=== PATIENT | female | born 1960 | race Caucasian/White ===

== ENCOUNTER 2016-09-04 20:39 | Inpatient (IN) | payer MEDICARE, MEDICAID ==
[~2016-09-04] VITALS: Ht 167.6 cm; Wt 97.9 kg
[~2016-09-04 20:39] MED LIST: ASPI-496 PO; CLON2TAB16 PO; CYCL-259 PO; DULO30CA2 PO; GABA100C PO; LISI1TAB7 PO; TRAZ100T15 PO
[2016-09-04] MEDS ORDERED: ONDANSETRON 2MG/ML, 2ML ONE (21:16)
[2016-09-04] MEDS ORDERED: HYDROmorphone 1 MG/ML, 1ML ONE ×2 (21:16→22:09)
[2016-09-04] MEDS ORDERED: SODIUM CHLORIDE 0.9% 1,000ML IVBOLUS ONE (21:30)
[2016-09-04] MEDS ORDERED: ONDANSETRON 2MG/ML, 2ML IVPush ONE (21:30)
[2016-09-04] MEDS: HYDROmorphone 1 MG/ML, 1ML IVPush PRN ×2 (21:32→22:15)
[2016-09-04 21:38] LABS: HEMOGLOBIN 14.7 g/dL (11.7-16.4)
[2016-09-04 21:50] LABS: BLOOD UREA NITROGEN 13 mg/dL (7-18)
[2016-09-04 21:54] LABS: ASPARTATE AMINO TRANSFERASE 11 U/L (15-37)
[2016-09-04 22:00] LABS: DIFF TOTAL CELLS COUNTED 100 CELL DIFF
[2016-09-04 22:07] LABS: VERIFY COUNTS? YES
[2016-09-05] MEDS ORDERED: HYDROmorphone 1 MG/ML, 1ML ONE (00:22)
[2016-09-05] MEDS ORDERED: SODIUM CHLORIDE 0.9% 1,000 ML IV ONE (00:43)
[2016-09-05] MEDS ORDERED: AMPICILLIN/SULBACTAM 1,500 MG in SODIUM CHLORIDE 0.9% 50 ML IV STA (00:45)
[2016-09-05] MEDS ORDERED: HYDROmorphone 1 MG/ML, 1ML IVPush PRN (01:00)
[2016-09-05] MEDS ORDERED: ONDANSETRON 2MG/ML, 2ML IVPush PRN (01:00)
[2016-09-05] MEDS ORDERED: HYDROmorphone 1 MG/ML, 1ML IV ONE (01:00)
[2016-09-05] MEDS ORDERED: NICOTINE 7 MG/24 HR PATCH.TD24 TD SCH (01:30)
[2016-09-05] MEDS ORDERED: ONDANSETRON 2MG/ML, 2ML IVP PRN (01:30)
[2016-09-05] MEDS ORDERED: POLYETHYLENE GLYCOL 17 GM PACKET PO PRN (01:30)
[2016-09-05] MEDS ORDERED: AMPICILLIN/SULBACTAM 3 GM in SODIUM CHLORIDE 0.9% 100 ML IV SCH (01:30)
[2016-09-05] MEDS ORDERED: BISACODYL 10 MG SUPP PR PRN (01:30)
[2016-09-05] MEDS ORDERED: DOCUSATE 100 MG CAPSULE PO PRN (01:30)
[2016-09-05] MEDS: HYDROmorphone 2 MG/ML, 1ML IV PRN ×8 (02:17→23:56)
[2016-09-05 02:30] VITALS: BP 108/73
[2016-09-05] MEDS ORDERED: MELA1TAB8 PO (03:40)
[2016-09-05] MEDS ORDERED: GABA100C8 PO (03:41)
[2016-09-05] MEDS ORDERED: CLON2TAB16 PO (03:45)
[2016-09-05] MEDS ORDERED: MELATONIN 5 MG TABLET PO PRN (04:30)
[2016-09-05] MEDS: LACTATED RINGERS 1,000 ML IV SCH ×2 (04:36→22:59)
[2016-09-05] MEDS: TRAZODONE 100MG TABLET PO SCH ×2 (05:05→23:00)
[2016-09-05] MEDS: CYCLOBENZAPRINE 10 MG TABLET PO SCH ×2 (05:05→21:31)
[2016-09-05] MEDS: GABAPENTIN 100 MG CAPSULE PO SCH ×3 (05:05→20:44)
[2016-09-05] MEDS: DULOXETINE 30 MG CAPSULE.DR PO SCH ×2 (08:23→09:41)
[2016-09-05] MEDS: LISINOPRIL 20 MG TABLET PO SCH ×2 (08:23→09:41)
[2016-09-05 08:42] VITALS: BP 130/84
[2016-09-05] MEDS ORDERED: GABAPENTIN 100 MG CAPSULE PO SCH (09:00)
[2016-09-05] MEDS: NICOTINE 21 MG/24 HR PATCH.TD24 TD SCH (11:42)
[2016-09-05 12:21] VITALS: BP 107/67
[2016-09-05 19:35] VITALS: BP 116/65
[2016-09-05] MEDS ORDERED: TRAZODONE 100MG TABLET PO SCH (21:00)
[2016-09-06 03:00] VITALS: BP 99/63
[2016-09-06] MEDS: HYDROmorphone 2 MG/ML, 1ML IV PRN ×5 (03:02→21:27)
[2016-09-06] MEDS ORDERED: MIDAZOLAM 1 MG/ML, 2ML ONE (06:50)
[2016-09-06] MEDS ORDERED: FENTANYL PF 250 MCG/5ML ONE (06:50)
[2016-09-06 06:55] VITALS: BP 100/64
[2016-09-06 07:26] LABS: HEMOGLOBIN 12.9 g/dL (11.7-16.4)
[2016-09-06] MEDS ORDERED: ALBUTEROL/IPRATROPIUM 2.5MG/0.5MG, 3 ML NPPB PRN (07:30)
[2016-09-06] MEDS ORDERED: FENTANYL PF 100 MCG/2ML IV PRN (07:30)
[2016-09-06] MEDS ORDERED: PROMETHAZINE 25 MG/ML, 1ML IV PRN (07:30)
[2016-09-06] MEDS ORDERED: LABETALOL 5MG/ML, 20ML IV PRN (07:30)
[2016-09-06] MEDS ORDERED: hydrALAzine 20 MG/ML, 1ML IV PRN (07:30)
[2016-09-06] MEDS ORDERED: ACETAMINOPHEN 325 MG TABLET PO PRN (07:30)
[2016-09-06] MEDS ORDERED: MEPERIDINE/PF 25MG/0.5ML IVPush PRN (07:30)
[2016-09-06] MEDS ORDERED: OXYcodone 5 MG/5 ML ORAL.SOL UDC PO PRN (07:30)
[2016-09-06] MEDS ORDERED: ONDANSETRON 2MG/ML, 2ML IVPush PRN (07:30)
[2016-09-06] MEDS: DULOXETINE 30 MG CAPSULE.DR PO SCH (07:33)
[2016-09-06] MEDS: LACTATED RINGERS 1,000 ML IV SCH ×3 (07:33→23:28)
[2016-09-06] MEDS: LISINOPRIL 20 MG TABLET PO SCH (07:33)
[2016-09-06] MEDS: GABAPENTIN 100 MG CAPSULE PO SCH ×3 (07:33→21:29)
[2016-09-06] MEDS: NICOTINE 21 MG/24 HR PATCH.TD24 TD SCH (07:34)
[2016-09-06 07:48] LABS: ASPARTATE AMINO TRANSFERASE 14 U/L (15-37); BLOOD UREA NITROGEN 5 mg/dL (7-18)
[2016-09-06] MEDS ORDERED: NICOTINE 21 MG/24 HR PATCH.TD24 TD SCH (09:00)
[2016-09-06] MEDS ORDERED: BUPIVACAINE/PF-EPI 0.5% 1:200K ONE (09:19)
[2016-09-06] MEDS ORDERED: KETOROLAC 30 MG/1 ML ONE (10:23)
[2016-09-06] MEDS ORDERED: DEXAMETHASONE 4 MG/ML, 1ML ONE (10:23)
[2016-09-06] MEDS ORDERED: ONDANSETRON 2MG/ML, 2ML ONE (10:23)
[2016-09-06] MEDS ORDERED: PROPOFOL 10 MG/ML, 20ML ONE (10:23)
[2016-09-06] MEDS ORDERED: ROCURONIUM 10 MG/ML ONE (10:23)
[2016-09-06] MEDS ORDERED: CEFOTETAN 2 GM ONE (10:23)
[2016-09-06] MEDS ORDERED: HYDROmorphone 2 MG/ML, 1ML ONE (11:13)
[2016-09-06] MEDS ORDERED: OXYcodone 5 MG/5 ML ORAL.SOL UDC ONE (11:13)
[2016-09-06] MEDS: HYDROmorphone 1 MG/ML, 1ML IV PRN ×3 (11:17→11:55)
[2016-09-06] MEDS ORDERED: PROMETHAZINE 25 MG/ML, 1ML ONE (11:26)
[2016-09-06] MEDS ORDERED: MEPERIDINE/PF 25MG/0.5ML ONE (11:26)
[2016-09-06 12:43] VITALS: BP 145/90
[2016-09-06] MEDS: OXYcodone IR 5MG TABLET PO PRN ×2 (17:21→23:32)
[2016-09-06 19:23] VITALS: BP 122/75
[2016-09-06] MEDS: CYCLOBENZAPRINE 10 MG TABLET PO SCH (21:27)
[2016-09-06] MEDS: TRAZODONE 100MG TABLET PO SCH (21:28)
[2016-09-06 23:40] VITALS: BP 122/68
[2016-09-07 02:40] VITALS: BP 122/78
[2016-09-07] MEDS: HYDROmorphone 2 MG/ML, 1ML IV PRN ×3 (02:51→12:08)
[2016-09-07] MEDS ORDERED: OXYC5TAB3 PO (03:43)
[2016-09-07 07:15] VITALS: BP 131/75
[2016-09-07] MEDS: LACTATED RINGERS 1,000 ML IV SCH (08:27)
[2016-09-07] MEDS: NICOTINE 21 MG/24 HR PATCH.TD24 TD SCH (08:29)
[2016-09-07] MEDS: GABAPENTIN 100 MG CAPSULE PO SCH (08:29)
[2016-09-07] MEDS: DULOXETINE 30 MG CAPSULE.DR PO SCH (08:29)
[2016-09-07] MEDS: LISINOPRIL 20 MG TABLET PO SCH (08:29)
[2016-09-07] MEDS ORDERED: HYDROCHLOROTHIAZIDE 25 MG TABLET PO SCH (09:19)
[2016-09-07] MEDS ORDERED: LISINOPRIL 20 MG TABLET PO SCH (09:20)
[2016-09-07] MEDS: OXYcodone IR 5MG TABLET PO PRN (10:11)
[2016-09-07 13:06] VITALS: BP 144/87
== END 2016-09-07 14:26 | disposition left against medical advice (07) | DRG 418 ==
LOC: ED 23:59 → SUATTDRO 09-05 00:41 → EDIP 09-05 00:43 → 4NOR 09-05 01:55
PROVIDERS: ATTEND Internal Medicine
PROC: 0FT44ZZ Resection of Gallbladder, Percutaneous Endoscopic Approach (ICD-10-PCS; principal; 2016-09-06 10:00)
DX: K80.00 Calculus of gallbladder with acute cholecystitis without obstruction (principal); F11.20 Opioid dependence, uncomplicated; E66.01 Morbid (severe) obesity due to excess calories; I11.9 Hypertensive heart disease without heart failure; G89.29 Other chronic pain; J44.9 Chronic obstructive pulmonary disease, unspecified; F17.200 Nicotine dependence, unspecified, uncomplicated; D72.829 Elevated white blood cell count, unspecified; M54.9 Dorsalgia, unspecified; G47.30 Sleep apnea, unspecified; E11.9 Type 2 diabetes mellitus without complications; Z80.3 Family history of malignant neoplasm of breast; Z99.81 Dependence on supplemental oxygen; Z90.710 Acquired absence of both cervix and uterus; Z88.5 Allergy status to narcotic agent; Z88.2 Allergy status to sulfonamides; Z88.8 Allergy status to other drugs, medicaments and biological substances; Z91.041 Radiographic dye allergy status; Z88.0 Allergy status to penicillin; Z91.013 Allergy to seafood; Z79.82 Long term (current) use of aspirin; Z68.34 Body mass index [BMI] 34.0-34.9, adult
CPT/HCPCS: 36415; 71010; 74181; 76700; 80053; 81003; 82962; 83690; 85025; 85610; 87324; 88304; 93005; 96361; 96374; 96375; J1100; J1170; J1885; J2250; J2405; J2550; J2704; J3010; J7030; J7120; S0074

== ENCOUNTER → 2016-10-04 | Outpatient (CLI) | payer MEDICARE, MEDICAID ==
[~2016-10-04] MED LIST changes: +GABA100C8 PO; +MELA1TAB8 PO; +OXYC5TAB3 PO
[2016-10-04 13:12] LABS: HEMOGLOBIN 14.5 g/dL (11.7-16.4)
[2016-10-04 13:25] LABS: BLOOD UREA NITROGEN 20 mg/dL (7-18)
[2016-10-04 13:30] LABS: ASPARTATE AMINO TRANSFERASE 12 U/L (15-37)
== END | disposition home or self-care (01) ==
LOC: CFH 07:07
PROVIDERS: ATTEND Physician Assistant
DX: K76.0 Fatty (change of) liver, not elsewhere classified (principal); K83.8 Other specified diseases of biliary tract; Z90.49 Acquired absence of other specified parts of digestive tract
CPT/HCPCS: 36415; 76700; 80053; 83690; 85025

== ENCOUNTER 2017-01-02 14:56 | Emergency (ER) | payer MEDICARE, MEDICAID ==
[~2017-01-02] VITALS: Ht 170.2 cm; Wt 90.0 kg
[~2017-01-02 14:56] MED LIST changes: +GABA-826 PO; -GABA100C8 PO
[2017-01-02 15:04] VITALS: BP 142/90
[2017-01-02] MEDS ORDERED: SODIUM CHLORIDE FLUSH 10ML SYR IVF ONE (15:30)
[2017-01-02] MEDS ORDERED: SODIUM CHLORIDE 0.9% 1,000ML IVBOLUS ONE (15:30)
[2017-01-02] MEDS ORDERED: ONDANSETRON 2MG/ML, 2ML IVPush ONE (15:30)
[2017-01-02 15:53] LABS: BLOOD UREA NITROGEN 10 mg/dL (7-18)
[2017-01-02 15:59] LABS: ASPARTATE AMINO TRANSFERASE 17 U/L (15-37)
== END 2017-01-02 16:37 | disposition left against medical advice (07) ==
LOC: ED 16:31
DX: R11.2 Nausea with vomiting, unspecified (principal); R19.7 Diarrhea, unspecified; R10.9 Unspecified abdominal pain; G89.29 Other chronic pain
CPT/HCPCS: 36415; 80053; 83690; 85025; 99284

== ENCOUNTER 2017-01-03 11:39 | Emergency (ER) | payer MEDICARE, MEDICAID ==
[~2017-01-03] VITALS: Ht 170.2 cm; Wt 90.0 kg
[2017-01-03] MEDS ORDERED: HYDROmorphone 1 MG/ML, 1ML ONE ×2 (12:15→14:40)
[2017-01-03] MEDS ORDERED: ONDANSETRON 2MG/ML, 2ML ONE (12:16)
[2017-01-03] MEDS ORDERED: ONDANSETRON 2MG/ML, 2ML IVPush ONE (12:30)
[2017-01-03] MEDS ORDERED: SODIUM CHLORIDE FLUSH 10ML SYR IVF ONE (12:30)
[2017-01-03] MEDS ORDERED: HYDROmorphone 1 MG/ML, 1ML IV ONE (12:30)
[2017-01-03] MEDS ORDERED: SODIUM CHLORIDE 0.9% 1,000ML IVBOLUS ONE (12:30)
[2017-01-03 12:45] LABS: BLOOD UREA NITROGEN 11 mg/dL (7-18)
[2017-01-03 12:49] LABS: ASPARTATE AMINO TRANSFERASE 21 U/L (15-37)
[2017-01-03] MEDS ORDERED: HYDROmorphone 1 MG/ML, 1ML IVPush PRN (14:30)
[2017-01-03 15:21] VITALS: BP 118/79
== END 2017-01-03 15:23 | disposition home or self-care (01) ==
LOC: ED 11:57
DX: R19.7 Diarrhea, unspecified (principal); R10.30 Lower abdominal pain, unspecified; R11.2 Nausea with vomiting, unspecified; I10 Essential (primary) hypertension; E11.9 Type 2 diabetes mellitus without complications; J44.9 Chronic obstructive pulmonary disease, unspecified; Z90.710 Acquired absence of both cervix and uterus
CPT/HCPCS: 36415; 74176; 80053; 81003; 83605; 85025; 96361; 96374; 96375; 96376; 99285; J1170; J2405; J7030

== ENCOUNTER 2017-01-27 18:16 | Emergency (ER) | payer MEDICARE, MEDICAID ==
[~2017-01-27] VITALS: Ht 165.1 cm; Wt 89.3 kg
[2017-01-27 18:55] LABS: HEMATOCRIT 48.6 % (34.6-47.8); HEMOGLOBIN 16.1 g/dL (11.7-16.4); WHITE BLOOD COUNT 14.8 x10^3/uL (3.4-10)
[2017-01-27] MEDS ORDERED: THIAMINE 100MG TABLET ONE (18:56)
[2017-01-27] MEDS ORDERED: SODIUM CHLORIDE 0.9% 1,000ML IVBOLUS ONE (19:00)
[2017-01-27] MEDS ORDERED: THIAMINE 100MG TABLET PO ONE (19:00)
[2017-01-27] MEDS ORDERED: SODIUM CHLORIDE FLUSH 10ML SYR IVF ONE (19:00)
[2017-01-27 19:07] LABS: ASPARTATE AMINO TRANSFERASE 13 U/L (15-37); BLOOD UREA NITROGEN 11 mg/dL (7-18)
[2017-01-27 19:52] LABS: DIFF TOTAL CELLS COUNTED 100 CELL DIFF
[2017-01-27] MEDS ORDERED: KETOROLAC 30 MG/1 ML ONE (19:55)
[2017-01-27 19:57] LABS: DAU SCREEN DISCLAIMER
[2017-01-27 19:57] LABS: VERIFY COUNTS? YES
[2017-01-27] MEDS ORDERED: KETOROLAC 30 MG/1 ML IVPush ONE (20:00)
[2017-01-27 20:05] VITALS: BP 117/70
== END 2017-01-27 21:55 | disposition home or self-care (01) ==
LOC: ED 20:32
DX: F14.10 Cocaine abuse, uncomplicated (principal); F44.89 Other dissociative and conversion disorders; D72.829 Elevated white blood cell count, unspecified; R93.0 Abnormal findings on diagnostic imaging of skull and head, not elsewhere classified; R41.3 Other amnesia; I10 Essential (primary) hypertension; E11.9 Type 2 diabetes mellitus without complications; F31.9 Bipolar disorder, unspecified
CPT/HCPCS: 36415; 70450; 80053; 80307; 80329; 81003; 82140; 84439; 84443; 85025; 93005; 96361; 96374; 99285; J1885; J7030; G0480

== ENCOUNTER 2017-05-23 13:45 | Emergency (ER) | payer MEDICARE, MEDICAID ==
[~2017-05-23] VITALS: Ht 167.6 cm; Wt 98.3 kg
[2017-05-23 13:47] VITALS: BP 162/99
[2017-05-23] MEDS ORDERED: KETOROLAC 30 MG/1 ML IM ONE (14:30)
[2017-05-23] MEDS ORDERED: DIAZEPAM 5 MG TABLET PO ONE (14:30)
[2017-05-23] MEDS ORDERED: OXYcodone 5 MG/5 ML ORAL.SOL UDC PO ONE (14:30)
== END 2017-05-23 14:30 | disposition home or self-care (01) ==
LOC: ED 14:00
DX: Z76.0 Encounter for issue of repeat prescription (principal); M54.5 Low back pain; G89.29 Other chronic pain; I10 Essential (primary) hypertension; J44.9 Chronic obstructive pulmonary disease, unspecified; E11.9 Type 2 diabetes mellitus without complications; F10.20 Alcohol dependence, uncomplicated
CPT/HCPCS: 99283

== ENCOUNTER 2017-09-26 18:51 | Inpatient (IN) | payer MEDICARE, MEDICAID ==
[~2017-09-26] VITALS: Ht 167.6 cm; Wt 80.5 kg
[~2017-09-26 18:51] MED LIST changes: +QUET100T4 PO; +TRAZ50TA18 PO
[2017-09-26 19:36] LABS: BASOPHILS # (AUTO) 0.07 x10^3/uL (0-0.1); BASOPHILS % (AUTO) 1 % (0-1); EOSINOPHILS # (AUTO) 0.32 x10^3/uL (0-0.4); EOSINOPHILS % (AUTO) 3 % (1-7); LYMPHOCYTES % (AUTO) 41 % (22-44); MD NO; MEAN CORPUSCULAR HEMOGLOBIN 31.3 pg (27.0-34.8); MEAN CORPUSCULAR HGB CONC 34.2 g/dL (32.4-35.8); MEAN CORPUSCULAR VOLUME 91.4 fL (80-100); MEAN PLATELET VOLUME 7.6 fL (7.4-10.4); MONOCYTES # (AUTO) 0.72 x10^3/uL (0.2-0.8); MONOCYTES % (AUTO) 6 % (2-9); NEUTROPHILS # (AUTO) 5.75 x10^3/uL (1.8-6.8); NEUTROPHILS % (AUTO) 49 % (42-75); PLATELET COUNT 285 x10^3/uL (130-400); RED CELL DISTRIBUTION WIDTH 13.1 % (9.6-15.2)
[2017-09-26 19:45] LABS: ALANINE AMINOTRANSFERASE 22 U/L (12-78); ALBUMIN 3.9 g/dL (3.4-5.0); ANION GAP 9 mmol/L (5-15); CALCIUM 9.1 mg/dL (8.5-10.1); CHLORIDE 104 mmol/L (98-107); CREATININE 0.82 mg/dL (0.55-1.02)
[2017-09-26 19:47] LABS: ALKALINE PHOSPHATASE 62 U/L (45-117); BILIRUBIN,TOTAL 0.5 mg/dL (0.2-1.0)
[2017-09-26] MEDS ORDERED: OXYcodone/APAP 5/325MG TABLET PO ONE (21:00)
[2017-09-26] MEDS ORDERED: OXYcodone/APAP 5/325MG TABLET ONE (21:08)
[2017-09-26 22:45] LABS: TROPONIN I < 0.015 ng/mL (0.000-0.045)
[2017-09-26] MEDS ORDERED: MORPHINE SULFATE 4 MG/ML, 1ML ONE (22:51)
[2017-09-26] MEDS ORDERED: ONDANSETRON ODT 4 MG ONE (22:51)
[2017-09-26] MEDS ORDERED: SODIUM CHLORIDE 0.9% 1,000 ML IV ONE (23:00)
[2017-09-26] MEDS ORDERED: SODIUM CHLORIDE FLUSH 10ML SYR IVF ONE (23:00)
[2017-09-26] MEDS ORDERED: MORPHINE SULFATE 4 MG/ML, 1ML IVPush PRN (23:00)
[2017-09-26] MEDS ORDERED: ONDANSETRON 2MG/ML, 2ML IVPush PRN (23:00)
[2017-09-26] MEDS ORDERED: ONDANSETRON ODT 4 MG PO ONE (23:00)
[2017-09-26] MEDS ORDERED: ONDANSETRON ODT 4 MG PO PRN (23:30)
[2017-09-26] MEDS ORDERED: QUETIAPINE 100MG TABLET PO SCH (23:30)
[2017-09-26] MEDS ORDERED: DOCUSATE 100 MG CAPSULE PO PRN (23:30)
[2017-09-26] MEDS ORDERED: CYCLOBENZAPRINE 10 MG TABLET PO PRN (23:30)
[2017-09-26] MEDS ORDERED: ENALAPRILAT 1.25 MG/ML, 2ML IVPush PRN (23:30)
[2017-09-26] MEDS ORDERED: TRAZODONE 100MG TABLET PO SCH (23:30)
[2017-09-26] MEDS ORDERED: OXYcodone IR 5MG TABLET PO PRN (23:30)
[2017-09-26] MEDS ORDERED: NICOTINE 21 MG/24 HR PATCH.TD24 TD SCH (23:30)
[2017-09-26] MEDS ORDERED: GABAPENTIN 100 MG CAPSULE PO SCH (23:30)
[2017-09-26 23:40] VITALS: BP_SYST 121; BP_SYST 94; BP_DIAS 57; BP_DIAS 81
[2017-09-27] VITALS (7 sets, daily range): BP systolic 89–124; BP diastolic 50–82
[2017-09-27] MEDS: morphine SULFATE 10 MG/ML, 1ML IVPush PRN ×2 (02:39→07:43)
[2017-09-27] MEDS ORDERED: DULOXETINE 30 MG CAPSULE.DR PO SCH (09:00)
[2017-09-27] MEDS ORDERED: GABAPENTIN 100 MG CAPSULE PO SCH (09:00)
[2017-09-27] MEDS ORDERED: ASPIRIN 81 MG TABLET EC PO SCH (09:00)
[2017-09-27] MEDS ORDERED: LISINOPRIL 20 MG TABLET PO SCH ×2 (09:00→09:30)
[2017-09-27] MEDS ORDERED: HYDROCHLOROTHIAZIDE 25 MG TABLET PO SCH (09:00)
[2017-09-27] MEDS ORDERED: DIAZEPAM 5 MG TABLET PO PRN (09:30)
[2017-09-27] MEDS ORDERED: LIDODERM 5% PATCH TD PRN (09:30)
[2017-09-27] MEDS: OXYcodone IR 5MG TABLET PO PRN ×2 (10:37→14:16)
[2017-09-27] MEDS ORDERED: KETOROLAC 30 MG/1 ML IVPush PRN (16:30)
== END 2017-09-27 17:57 | disposition home or self-care (01) | DRG 312 ==
LOC: ED 21:16 → 4EST 23:00
PROVIDERS: ADMIT Hospitalist; ATTEND Hospitalist
DX: R55 Syncope and collapse (principal); F11.20 Opioid dependence, uncomplicated; D72.829 Elevated white blood cell count, unspecified; F31.9 Bipolar disorder, unspecified; F17.210 Nicotine dependence, cigarettes, uncomplicated; E11.9 Type 2 diabetes mellitus without complications; G89.4 Chronic pain syndrome; I10 Essential (primary) hypertension; J44.9 Chronic obstructive pulmonary disease, unspecified; Z90.49 Acquired absence of other specified parts of digestive tract; Z90.710 Acquired absence of both cervix and uterus; Z88.2 Allergy status to sulfonamides; Z88.7 Allergy status to serum and vaccine; Z88.6 Allergy status to analgesic agent; Z88.1 Allergy status to other antibiotic agents; Z91.041 Radiographic dye allergy status; Z88.0 Allergy status to penicillin; Z91.013 Allergy to seafood; Z83.3 Family history of diabetes mellitus; Z82.49 Family history of ischemic heart disease and other diseases of the circulatory system; Z80.3 Family history of malignant neoplasm of breast; Z80.42 Family history of malignant neoplasm of prostate; Z80.51 Family history of malignant neoplasm of kidney; Z80.9 Family history of malignant neoplasm, unspecified
CPT/HCPCS: 36415; 72020; 72050; 72192; 80053; 84484; 85025; 93005; 93306; 96374; J2405; Q0162; J2270

== ENCOUNTER 2017-10-26 19:44 | Inpatient (IN) | payer MEDICARE, MEDICAID ==
[~2017-10-26] VITALS: Ht 167.6 cm; Wt 104.9 kg
[2017-10-26] MEDS ORDERED: FAMOTIDINE 20 MG/2 ML ONE (21:13)
[2017-10-26] MEDS ORDERED: ONDANSETRON ODT 4 MG ONE (21:13)
[2017-10-26] MEDS ORDERED: MAALOX/HYOSCYAMINE/LIDOCAINE 45 ML BTL ONE (21:13)
[2017-10-26 21:18] LABS: BASOPHILS # (AUTO) 0.04 x10^3/uL (0-0.1); BASOPHILS % (AUTO) 0 % (0-1); EOSINOPHILS % (AUTO) 2 % (1-7); LYMPHOCYTES % (AUTO) 15 % (22-44); MD NO; MEAN CORPUSCULAR HEMOGLOBIN 30.8 pg (27.0-34.8); MEAN CORPUSCULAR HGB CONC 33.9 g/dL (32.4-35.8); MEAN CORPUSCULAR VOLUME 90.9 fL (80-100); MEAN PLATELET VOLUME 8.1 fL (7.4-10.4); MONOCYTES % (AUTO) 6 % (2-9); NEUTROPHILS # (AUTO) 10.63 x10^3/uL (1.8-6.8); NEUTROPHILS % (AUTO) 77 % (42-75); PLATELET COUNT 339 x10^3/uL (130-400); RED CELL DISTRIBUTION WIDTH 12.1 % (9.6-15.2)
[2017-10-26 21:27] LABS: MICROSCOPIC NOT IND
[2017-10-26 21:29] LABS: ALANINE AMINOTRANSFERASE 24 U/L (12-78); ALBUMIN 3.8 g/dL (3.4-5.0); ANION GAP 9 mmol/L (5-15); CALCIUM 9.5 mg/dL (8.5-10.1); CHLORIDE 106 mmol/L (98-107); CREATININE 0.75 mg/dL (0.55-1.02)
[2017-10-26] MEDS ORDERED: ONDANSETRON 2MG/ML, 2ML IVPush ONE (21:30)
[2017-10-26] MEDS ORDERED: FAMOTIDINE 20 MG/2 ML IVP ONE (21:30)
[2017-10-26] MEDS ORDERED: SODIUM CHLORIDE FLUSH 10ML SYR IVF ONE (21:30)
[2017-10-26] MEDS ORDERED: MAALOX/HYOSCYAMINE/LIDOCAINE 45 ML BTL PO ONE (21:30)
[2017-10-26 21:31] LABS: ALKALINE PHOSPHATASE 61 U/L (45-117); BILIRUBIN,TOTAL 0.5 mg/dL (0.2-1.0); TOTAL PROTEIN 7.8 g/dL (6.4-8.2)
[2017-10-26 21:32] LABS: CULTURE INDICATED? NO
[2017-10-26] MEDS ORDERED: PROCHLORPERAZINE 5 MG/ML, 2ML IVPush ONE (22:00)
[2017-10-26] MEDS ORDERED: PROCHLORPERAZINE 5 MG/ML, 2ML ONE (22:19)
[2017-10-26] MEDS ORDERED: MORPHINE SULFATE 4 MG/ML, 1ML ONE (22:22)
[2017-10-26] MEDS ORDERED: ONDANSETRON 2MG/ML, 2ML IVPush PRN (22:30)
[2017-10-26] MEDS ORDERED: PROCHLORPERAZINE 5 MG/ML, 2ML IVPush PRN (22:30)
[2017-10-26] MEDS ORDERED: MORPHINE SULFATE 4 MG/ML, 1ML IVPush PRN (22:30)
[2017-10-26] MEDS ORDERED: hydrALAzine 20 MG/ML, 1ML IVPush PRN (22:30)
[2017-10-26] MEDS: LACTATED RINGERS 1,000 ML IV SCH (23:45)
[2017-10-26] MEDS: ENOXAPARIN 40 MG/0.4 ML SQ SCH (23:46)
[2017-10-26 23:55] VITALS: BP 134/79
[2017-10-27] MEDS: morphine SULFATE 10 MG/ML, 1ML IVPush PRN ×6 (00:07→21:03)
[2017-10-27] MEDS ORDERED: GABAPENTIN 100 MG CAPSULE PO ONE (01:30)
[2017-10-27] MEDS ORDERED: QUETIAPINE 100MG TABLET PO ONE (01:30)
[2017-10-27] MEDS ORDERED: TRAZODONE 150MG TABLET PO ONE (01:30)
[2017-10-27 01:57] VITALS: BP 131/82
[2017-10-27 05:13] LABS: BASOPHILS # (AUTO) 0.02 x10^3/uL (0-0.1); BASOPHILS % (AUTO) 0 % (0-1); EOSINOPHILS # (AUTO) 0.35 x10^3/uL (0-0.4); EOSINOPHILS % (AUTO) 3 % (1-7); LYMPHOCYTES % (AUTO) 11 % (22-44); MD NO; MEAN CORPUSCULAR HEMOGLOBIN 31.2 pg (27.0-34.8); MEAN CORPUSCULAR VOLUME 91.8 fL (80-100); MEAN PLATELET VOLUME 7.8 fL (7.4-10.4); MONOCYTES # (AUTO) 0.65 x10^3/uL (0.2-0.8); MONOCYTES % (AUTO) 5 % (2-9); NEUTROPHILS # (AUTO) 9.96 x10^3/uL (1.8-6.8); NEUTROPHILS % (AUTO) 81 % (42-75); PLATELET COUNT 284 x10^3/uL (130-400); RED BLOOD COUNT 4.66 x10^6/uL (3.82-5.3); RED CELL DISTRIBUTION WIDTH 12.6 % (9.6-15.2)
[2017-10-27 05:25] LABS: CHLORIDE 108 mmol/L (98-107)
[2017-10-27 05:32] LABS: ANION GAP 9 mmol/L (5-15); CALCIUM 8.6 mg/dL (8.5-10.1); CREATININE 0.73 mg/dL (0.55-1.02)
[2017-10-27] MEDS ORDERED: MAGNESIUM SULFATE PMX 2GM/50ML 50 ML IV ONE (06:30)
[2017-10-27] MEDS: LACTATED RINGERS 1,000 ML IV SCH ×3 (06:31→21:02)
[2017-10-27 06:43] VITALS: BP 115/76
[2017-10-27 08:02] LABS: CLOSTRIDIUM DIFFICILE ANTIGEN NEGATIVE; CLOSTRIDIUM DIFFICILE TOXIN NEGATIVE (Negative)
[2017-10-27 12:30] VITALS: BP 126/79
[2017-10-27 18:48] VITALS: BP 154/88
[2017-10-27] MEDS: CYCLOBENZAPRINE 10 MG TABLET PO PRN (21:03)
[2017-10-27] MEDS: ENOXAPARIN 40 MG/0.4 ML SQ SCH (21:12)
[2017-10-27] MEDS: NICOTINE 21 MG/24 HR PATCH.TD24 TD SCH (21:12)
[2017-10-28 01:01] VITALS: BP 122/80
[2017-10-28] MEDS: morphine SULFATE 10 MG/ML, 1ML IVPush PRN ×3 (01:02→09:04)
[2017-10-28] MEDS: LACTATED RINGERS 1,000 ML IV SCH ×3 (04:27→21:15)
[2017-10-28 06:45] VITALS: BP 127/87
[2017-10-28] MEDS: NICOTINE 21 MG/24 HR PATCH.TD24 TD SCH (09:03)
[2017-10-28] MEDS: OXYcodone IR 5MG TABLET PO PRN ×3 (13:36→22:01)
[2017-10-28] MEDS: DULOXETINE 30 MG CAPSULE.DR PO SCH (13:36)
[2017-10-28 14:34] VITALS: BP 148/92
[2017-10-28] MEDS ORDERED: MAGNESIUM SULFATE PMX 2GM/50ML 50 ML IV ONE (16:30)
[2017-10-28 18:34] VITALS: BP 147/93
[2017-10-28] MEDS: QUETIAPINE 100MG TABLET PO SCH (21:14)
[2017-10-28] MEDS: CYCLOBENZAPRINE 10 MG TABLET PO PRN (21:14)
[2017-10-28] MEDS: TRAZODONE 100MG TABLET PO SCH (21:14)
[2017-10-28] MEDS: GABAPENTIN 100 MG CAPSULE PO SCH (21:14)
[2017-10-28] MEDS: ENOXAPARIN 40 MG/0.4 ML SQ SCH (21:15)
[2017-10-29 01:27] VITALS: BP 120/76
[2017-10-29] MEDS: OXYcodone IR 5MG TABLET PO PRN ×5 (02:16→19:18)
[2017-10-29 05:41] LABS: BASOPHILS # (AUTO) 0.03 x10^3/uL (0-0.1); BASOPHILS % (AUTO) 1 % (0-1); EOSINOPHILS # (AUTO) 0.35 x10^3/uL (0-0.4); EOSINOPHILS % (AUTO) 6 % (1-7); LYMPHOCYTES # (AUTO) 2.21 x10^3/uL (1-3.4); LYMPHOCYTES % (AUTO) 35 % (22-44); MD NO; MEAN CORPUSCULAR VOLUME 91.1 fL (80-100); MEAN PLATELET VOLUME 7.6 fL (7.4-10.4); MONOCYTES # (AUTO) 0.73 x10^3/uL (0.2-0.8); MONOCYTES % (AUTO) 12 % (2-9); NEUTROPHILS # (AUTO) 2.93 x10^3/uL (1.8-6.8); NEUTROPHILS % (AUTO) 47 % (42-75); PLATELET COUNT 247 x10^3/uL (130-400); RED BLOOD COUNT 4.21 x10^6/uL (3.82-5.3); RED CELL DISTRIBUTION WIDTH 12.4 % (9.6-15.2)
[2017-10-29] MEDS: LACTATED RINGERS 1,000 ML IV SCH ×3 (05:58→22:30)
[2017-10-29 06:48] VITALS: BP_SYST 131; BP_SYST 31; BP_DIAS 86
[2017-10-29] MEDS: ASPIRIN 81 MG TABLET EC PO SCH (08:41)
[2017-10-29] MEDS: DULOXETINE 30 MG CAPSULE.DR PO SCH (08:41)
[2017-10-29] MEDS: NICOTINE 21 MG/24 HR PATCH.TD24 TD SCH (08:42)
[2017-10-29 12:57] VITALS: BP 150/88
[2017-10-29 19:06] VITALS: BP 165/87
[2017-10-29] MEDS: QUETIAPINE 100MG TABLET PO SCH (22:06)
[2017-10-29] MEDS: GABAPENTIN 100 MG CAPSULE PO SCH (22:06)
[2017-10-29] MEDS: TRAZODONE 100MG TABLET PO SCH (22:06)
[2017-10-29] MEDS: CYCLOBENZAPRINE 10 MG TABLET PO PRN (22:13)
[2017-10-29] MEDS: ENOXAPARIN 40 MG/0.4 ML SQ SCH (22:30)
[2017-10-30] MEDS: OXYcodone IR 5MG TABLET PO PRN ×4 (00:09→12:25)
[2017-10-30 03:51] VITALS: BP 149/88
[2017-10-30] MEDS: LACTATED RINGERS 1,000 ML IV SCH (05:21)
[2017-10-30] MEDS: DULOXETINE 30 MG CAPSULE.DR PO SCH (08:26)
[2017-10-30] MEDS: ASPIRIN 81 MG TABLET EC PO SCH (08:26)
[2017-10-30] MEDS: NICOTINE 21 MG/24 HR PATCH.TD24 TD SCH (08:26)
[2017-10-30] MEDS ORDERED: TRAZ50TA18 PO (12:28)
[2017-10-30] MEDS ORDERED: QUET100T4 PO (12:28)
[2017-10-30] MEDS ORDERED: DULO30CA2 PO (12:28)
== END 2017-10-30 14:00 | disposition home or self-care (01) | DRG 389 ==
LOC: ED 21:02 → EDIP 22:28 → SUATTDRO 22:28 → 3NE 23:15 → DCLOUNGE 10-30 13:45
PROVIDERS: ADMIT Hospitalist; ATTEND Hospitalist
DX: K56.609 Unspecified intestinal obstruction, unspecified as to partial versus complete obstruction (principal); F11.20 Opioid dependence, uncomplicated; K56.7 Ileus, unspecified; E87.6 Hypokalemia; I10 Essential (primary) hypertension; J44.9 Chronic obstructive pulmonary disease, unspecified; G89.4 Chronic pain syndrome; F31.9 Bipolar disorder, unspecified; E11.9 Type 2 diabetes mellitus without complications; K21.9 Gastro-esophageal reflux disease without esophagitis; Z90.710 Acquired absence of both cervix and uterus; Z90.49 Acquired absence of other specified parts of digestive tract; F17.200 Nicotine dependence, unspecified, uncomplicated
CPT/HCPCS: 36415; 74018; 74176; 80048; 80053; 81003; 83690; 83735; 84100; 85025; 87046; 87324; 87427; 93005; 96374; 96375; J1650; J2405; J0780; J2270; J3475; J7120; S0028

== ENCOUNTER 2017-11-13 13:08 | Emergency (ER) | payer MEDICARE, MEDICAID ==
[~2017-11-13] VITALS: Ht 167.6 cm; Wt 105.5 kg
[2017-11-13] MEDS ORDERED: DIAZ5TAB PO (13:47)
[2017-11-13] MEDS ORDERED: PROCHLORPERAZINE 5 MG/ML, 2ML ONE (13:49)
[2017-11-13] MEDS ORDERED: DIPHENHYDRAMINE 50 MG/ML, 1ML ONE (13:50)
[2017-11-13 13:58] LABS: MICROSCOPIC NOT IND
[2017-11-13] MEDS ORDERED: DIPHENHYDRAMINE 50 MG/ML, 1ML IVPush ONE (14:00)
[2017-11-13] MEDS ORDERED: PROCHLORPERAZINE 5 MG/ML, 2ML IVPush ONE (14:00)
[2017-11-13] MEDS ORDERED: SODIUM CHLORIDE FLUSH 10ML SYR IVF ONE (14:00)
[2017-11-13] MEDS ORDERED: SODIUM CHLORIDE 0.9% 1,000ML IVBOLUS ONE (14:00)
[2017-11-13] MEDS ORDERED: MORPHINE SULFATE 4 MG/ML, 1ML IVPush PRN (14:00)
[2017-11-13 14:01] LABS: CULTURE INDICATED? NO
[2017-11-13 14:05] LABS: BASOPHILS # (AUTO) 0.06 x10^3/uL (0-0.1); BASOPHILS % (AUTO) 1 % (0-1); EOSINOPHILS # (AUTO) 0.51 x10^3/uL (0-0.4); EOSINOPHILS % (AUTO) 5 % (1-7); LYMPHOCYTES # (AUTO) 4.72 x10^3/uL (1-3.4); LYMPHOCYTES % (AUTO) 46 % (22-44); MD NO; MEAN CORPUSCULAR HEMOGLOBIN 30.6 pg (27.0-34.8); MEAN CORPUSCULAR HGB CONC 33.9 g/dL (32.4-35.8); MEAN CORPUSCULAR VOLUME 90.3 fL (80-100); MEAN PLATELET VOLUME 7.6 fL (7.4-10.4); MONOCYTES # (AUTO) 0.63 x10^3/uL (0.2-0.8); MONOCYTES % (AUTO) 6 % (2-9); NEUTROPHILS # (AUTO) 4.28 x10^3/uL (1.8-6.8); NEUTROPHILS % (AUTO) 42 % (42-75); PLATELET COUNT 319 x10^3/uL (130-400); RED BLOOD COUNT 4.46 x10^6/uL (3.82-5.3); RED CELL DISTRIBUTION WIDTH 12.1 % (9.6-15.2)
[2017-11-13 14:18] LABS: ALANINE AMINOTRANSFERASE 27 U/L (12-78); ALBUMIN 3.8 g/dL (3.4-5.0); ANION GAP 6 mmol/L (5-15); CALCIUM 8.5 mg/dL (8.5-10.1); CHLORIDE 101 mmol/L (98-107); CREATININE 0.89 mg/dL (0.55-1.02)
[2017-11-13 14:22] LABS: ALKALINE PHOSPHATASE 68 U/L (45-117); BILIRUBIN,TOTAL 0.2 mg/dL (0.2-1.0); TOTAL PROTEIN 7.8 g/dL (6.4-8.2); TROPONIN I < 0.015 ng/mL (0.000-0.045)
[2017-11-13 15:09] VITALS: BP 143/98
== END 2017-11-13 15:11 | disposition home or self-care (01) ==
LOC: ED 15:05
DX: E11.65 Type 2 diabetes mellitus with hyperglycemia (principal); F11.23 Opioid dependence with withdrawal; J44.9 Chronic obstructive pulmonary disease, unspecified; I10 Essential (primary) hypertension; F10.20 Alcohol dependence, uncomplicated
CPT/HCPCS: 36415; 80053; 81003; 82962; 84484; 85025; 93005; 96361; 96374; 96375; 99285; J0780; J1200; J7030

== ENCOUNTER 2017-11-18 18:18 | Emergency (ER) | payer MEDICARE, MEDICAID ==
[~2017-11-18] VITALS: Ht 167.6 cm; Wt 101.0 kg
[~2017-11-18 18:18] MED LIST changes: +DIAZ5TAB PO
[2017-11-18 19:00] LABS: BASOPHILS # (AUTO) 0.04 x10^3/uL (0-0.1); BASOPHILS % (AUTO) 0 % (0-1); EOSINOPHILS # (AUTO) 0.47 x10^3/uL (0-0.4); EOSINOPHILS % (AUTO) 4 % (1-7); LYMPHOCYTES # (AUTO) 4.65 x10^3/uL (1-3.4); LYMPHOCYTES % (AUTO) 44 % (22-44); MD NO; MEAN CORPUSCULAR HEMOGLOBIN 30.8 pg (27.0-34.8); MEAN CORPUSCULAR HGB CONC 33.4 g/dL (32.4-35.8); MEAN CORPUSCULAR VOLUME 92.2 fL (80-100); MEAN PLATELET VOLUME 7.4 fL (7.4-10.4); MONOCYTES # (AUTO) 0.73 x10^3/uL (0.2-0.8); MONOCYTES % (AUTO) 7 % (2-9); NEUTROPHILS # (AUTO) 4.76 x10^3/uL (1.8-6.8); NEUTROPHILS % (AUTO) 45 % (42-75); PLATELET COUNT 283 x10^3/uL (130-400); RED BLOOD COUNT 4.65 x10^6/uL (3.82-5.3); RED CELL DISTRIBUTION WIDTH 12.4 % (9.6-15.2)
[2017-11-18 19:10] LABS: ALANINE AMINOTRANSFERASE 19 U/L (12-78); ALBUMIN 3.4 g/dL (3.4-5.0); ANION GAP 7 mmol/L (5-15); CALCIUM 9.2 mg/dL (8.5-10.1); CHLORIDE 107 mmol/L (98-107); CREATININE 0.76 mg/dL (0.55-1.02)
[2017-11-18 19:14] LABS: ALKALINE PHOSPHATASE 62 U/L (45-117); BILIRUBIN,TOTAL 0.2 mg/dL (0.2-1.0); TOTAL PROTEIN 7.1 g/dL (6.4-8.2); TROPONIN I < 0.015 ng/mL (0.000-0.045)
[2017-11-18] MEDS ORDERED: METF500T27 PO (19:58)
[2017-11-18] MEDS ORDERED: IBUPROFEN 200 MG TABLET ONE (19:59)
[2017-11-18] MEDS ORDERED: IBUPROFEN 200 MG TABLET PO ONE (20:00)
[2017-11-18 20:47] LABS: MICROSCOPIC NOT IND
[2017-11-18 20:53] LABS: CULTURE INDICATED? NO
[2017-11-18 21:51] VITALS: BP 105/74
== END 2017-11-18 22:10 | disposition home or self-care (01) ==
LOC: ED 20:34
DX: S39.012A Strain of muscle, fascia and tendon of lower back, initial encounter (principal); S93.491A Sprain of other ligament of right ankle, initial encounter; S70.01XA Contusion of right hip, initial encounter; E11.65 Type 2 diabetes mellitus with hyperglycemia; G43.909 Migraine, unspecified, not intractable, without status migrainosus; F10.20 Alcohol dependence, uncomplicated; J44.9 Chronic obstructive pulmonary disease, unspecified; I10 Essential (primary) hypertension; F17.200 Nicotine dependence, unspecified, uncomplicated; W18.39XA Other fall on same level, initial encounter; Y93.89 Activity, other specified; Y92.89 Other specified places as the place of occurrence of the external cause; Y99.8 Other external cause status
CPT/HCPCS: 36415; 71046; 72110; 72192; 80053; 81003; 84484; 85025; 93005; 99285

== ENCOUNTER 2018-04-02 18:14 | Emergency (ER) | payer MEDICARE, MEDICAID ==
[~2018-04-02] VITALS: Ht 167.6 cm; Wt 100.0 kg
[~2018-04-02 18:14] MED LIST changes: +METF500T27 PO; +TRAZ-136 PO; +TRAZ-137 PO; -TRAZ100T15 PO; -TRAZ50TA18 PO
[2018-04-02] MEDS ORDERED: DIPHENHYDRAMINE 50 MG/ML, 1ML ONE (18:51)
[2018-04-02] MEDS ORDERED: FAMOTIDINE 20 MG/2 ML ONE (18:52)
[2018-04-02] MEDS ORDERED: HYDROmorphone 2 MG/ML, 1ML ONE (18:52)
[2018-04-02] MEDS ORDERED: HYDROmorphone 1 MG/ML, 1ML IV ONE (19:00)
[2018-04-02] MEDS ORDERED: FAMOTIDINE 20 MG/2 ML IVPush ONE (19:00)
[2018-04-02] MEDS ORDERED: SODIUM CHLORIDE FLUSH 10ML SYR IVF ONE (19:00)
[2018-04-02] MEDS ORDERED: DIPHENHYDRAMINE 50 MG/ML, 1ML IVPush ONE (19:00)
[2018-04-02 19:55] VITALS: BP 162/96
== END 2018-04-02 20:11 | disposition home or self-care (01) ==
LOC: ED 20:02
DX: L50.9 Urticaria, unspecified (principal); T40.605A Adverse effect of unspecified narcotics, initial encounter; M54.6 Pain in thoracic spine; M54.5 Low back pain; I10 Essential (primary) hypertension; J44.9 Chronic obstructive pulmonary disease, unspecified; E11.9 Type 2 diabetes mellitus without complications; Y92.89 Other specified places as the place of occurrence of the external cause; Z90.49 Acquired absence of other specified parts of digestive tract
CPT/HCPCS: 93005; 96374; 96375; 99284; J1170; J1200; S0028

== ENCOUNTER 2018-04-11 16:52 | Observation (INO) | payer MEDICARE, MEDICAID ==
[~2018-04-11] VITALS: Ht 167.6 cm; Wt 105.8 kg
[2018-04-11] MEDS ORDERED: SODIUM CHLORIDE FLUSH 10ML SYR IVF ONE (17:30)
[2018-04-11] MEDS ORDERED: NITROGLYCERIN 0.4 MG BOTTLE (25 TABS) SL PRN ×2 (17:30→20:30)
[2018-04-11] MEDS ORDERED: ONDANSETRON 2MG/ML, 2ML IVPush ONE (17:30)
[2018-04-11] MEDS ORDERED: MORPHINE SULFATE 4 MG/ML, 1ML IVPush PRN (17:30)
[2018-04-11] MEDS ORDERED: ONDANSETRON 2MG/ML, 2ML ONE (17:32)
[2018-04-11] MEDS ORDERED: NITROGLYCERIN SINGLE TAB 0.4 MG SL ONE (17:32)
[2018-04-11] MEDS ORDERED: MORPHINE SULFATE 4 MG/ML, 1ML ONE (17:32)
[2018-04-11 17:45] LABS: BASOPHILS # (AUTO) 0.02 x10^3/uL (0-0.1); BASOPHILS % (AUTO) 0 % (0-1); EOSINOPHILS # (AUTO) 0.08 x10^3/uL (0-0.4); EOSINOPHILS % (AUTO) 1 % (1-7); LYMPHOCYTES # (AUTO) 2.07 x10^3/uL (1-3.4); LYMPHOCYTES % (AUTO) 20 % (22-44); MD NO; MEAN CORPUSCULAR HEMOGLOBIN 30.6 pg (27.0-34.8); MEAN CORPUSCULAR HGB CONC 33.7 g/dL (32.4-35.8); MEAN CORPUSCULAR VOLUME 90.7 fL (80-100); MEAN PLATELET VOLUME 7.2 fL (7.4-10.4); MONOCYTES # (AUTO) 0.59 x10^3/uL (0.2-0.8); MONOCYTES % (AUTO) 6 % (2-9); NEUTROPHILS # (AUTO) 7.68 x10^3/uL (1.8-6.8); NEUTROPHILS % (AUTO) 74 % (42-75); PLATELET COUNT 297 x10^3/uL (130-400); RED BLOOD COUNT 4.41 x10^6/uL (3.82-5.3); RED CELL DISTRIBUTION WIDTH 13.8 % (9.6-15.2)
[2018-04-11 17:49] LABS: INTERNATIONAL NORMALIZED RATIO 0.96 (0.93-1.1); PROTHROMBIN TIME 9.9 Seconds (9.6-11.5)
[2018-04-11 17:54] LABS: ALANINE AMINOTRANSFERASE 38 U/L (12-78); ALBUMIN 3.7 g/dL (3.4-5.0); ANION GAP 7 mmol/L (5-15); CALCIUM 8.5 mg/dL (8.5-10.1); CHLORIDE 101 mmol/L (98-107); CREATININE 0.77 mg/dL (0.55-1.02)
[2018-04-11] MEDS ORDERED: HYDROmorphone 2 MG/ML, 1ML ONE (17:58)
[2018-04-11 17:59] LABS: ALKALINE PHOSPHATASE 62 U/L (45-117); BILIRUBIN,TOTAL 0.4 mg/dL (0.2-1.0); TOTAL PROTEIN 7.8 g/dL (6.4-8.2); TROPONIN I < 0.015 ng/mL (0.000-0.045)
[2018-04-11] MEDS ORDERED: GLYB5TAB3 PO (18:08)
[2018-04-11] MEDS ORDERED: HYDROmorphone 2 MG/ML, 1ML IVPush PRN ×2 (18:30→18:58)
[2018-04-11 19:14] LABS: MICROSCOPIC NOT IND
[2018-04-11 19:19] LABS: CULTURE INDICATED? NO
[2018-04-11 19:48] VITALS: BP 122/79
[2018-04-11] MEDS ORDERED: POLYETHYLENE GLYCOL 17 GM PACKET PO PRN (20:30)
[2018-04-11] MEDS ORDERED: ONDANSETRON ODT 4 MG PO PRN (20:30)
[2018-04-11] MEDS ORDERED: METHOCARBAMOL 500 MG TABLET PO PRN (20:30)
[2018-04-11] MEDS ORDERED: ONDANSETRON 2MG/ML, 2ML IVPush PRN (20:30)
[2018-04-11] MEDS ORDERED: OXYcodone IR 5MG TABLET PO PRN (20:30)
[2018-04-11] MEDS ORDERED: PROMETHAZINE 25 MG/ML, 1ML IM PRN (20:30)
[2018-04-11] MEDS ORDERED: LABETALOL 5MG/ML, 20ML IVPush PRN (20:30)
[2018-04-11] MEDS ORDERED: hydrALAzine 20 MG/ML, 1ML IVPush PRN (20:30)
[2018-04-11] MEDS ORDERED: BISACODYL 10 MG SUPP PR PRN (20:30)
[2018-04-11] MEDS ORDERED: NICOTINE 7 MG/24 HR PATCH.TD24 TD SCH (20:30)
[2018-04-11] MEDS ORDERED: TRAZODONE 100MG TABLET ONE (20:33)
[2018-04-11] MEDS ORDERED: QUETIAPINE 100MG TABLET ONE (20:34)
[2018-04-11] MEDS: SODIUM CHLORIDE 0.9% 1,000 ML IV SCH ×3 (20:41→20:58)
[2018-04-11] MEDS: HEPARIN 5,000 UNITS/ML, 1ML SQ SCH (20:41)
[2018-04-11] MEDS: GABAPENTIN 100 MG CAPSULE PO SCH (20:42)
[2018-04-11] MEDS: INSULIN LISPRO 100 UNITS/ML, PEN SQ-INSULIN SCH (20:58)
[2018-04-11] MEDS ORDERED: QUETIAPINE 100MG TABLET PO SCH (21:00)
[2018-04-11] MEDS ORDERED: TRAZODONE 100MG TABLET PO SCH (21:00)
[2018-04-11 21:06] LABS: FREE T4 (FREE THYROXINE) 0.89 ng/dL (0.76-1.46); THYROID STIMULATING HORMONE 1.06 mIU/L (0.358-3.740)
[2018-04-11] MEDS: HYDROmorphone 2 MG/ML, 1ML IVPush PRN (21:07)
[2018-04-11 23:24] LABS: MICROSCOPIC NOT IND
[2018-04-11 23:27] LABS: CULTURE INDICATED? NO
[2018-04-12 01:34] VITALS: BP 133/81
[2018-04-12] MEDS: KETOROLAC 30 MG/1 ML IV PRN ×2 (01:48→08:27)
[2018-04-12] MEDS: OXYcodone IR 5MG TABLET PO PRN ×3 (01:48→15:26)
[2018-04-12 02:08] LABS: BASOPHILS # (AUTO) 0.04 x10^3/uL (0-0.1); BASOPHILS % (AUTO) 1 % (0-1); EOSINOPHILS # (AUTO) 0.24 x10^3/uL (0-0.4); EOSINOPHILS % (AUTO) 3 % (1-7); LYMPHOCYTES # (AUTO) 3.81 x10^3/uL (1-3.4); LYMPHOCYTES % (AUTO) 45 % (22-44); MD NO; MEAN CORPUSCULAR HEMOGLOBIN 30.6 pg (27.0-34.8); MEAN CORPUSCULAR HGB CONC 33.9 g/dL (32.4-35.8); MEAN CORPUSCULAR VOLUME 90.2 fL (80-100); MEAN PLATELET VOLUME 7.4 fL (7.4-10.4); MONOCYTES # (AUTO) 0.78 x10^3/uL (0.2-0.8); MONOCYTES % (AUTO) 9 % (2-9); NEUTROPHILS # (AUTO) 3.57 x10^3/uL (1.8-6.8); NEUTROPHILS % (AUTO) 42 % (42-75); PLATELET COUNT 243 x10^3/uL (130-400); RED BLOOD COUNT 3.92 x10^6/uL (3.82-5.3); RED CELL DISTRIBUTION WIDTH 14.2 % (9.6-15.2)
[2018-04-12 02:16] LABS: TROPONIN I < 0.015 ng/mL (0.000-0.045)
[2018-04-12 02:19] LABS: ALANINE AMINOTRANSFERASE 32 U/L (12-78); ALBUMIN 3.1 g/dL (3.4-5.0); ANION GAP 3 mmol/L (5-15); CALCIUM 8.4 mg/dL (8.5-10.1); CHLORIDE 106 mmol/L (98-107); CHOLESTEROL, TOTAL 124 mg/dL (140-239); CREATININE 0.73 mg/dL (0.55-1.02)
[2018-04-12 02:21] LABS: ALKALINE PHOSPHATASE 50 U/L (45-117); BILIRUBIN,TOTAL 0.3 mg/dL (0.2-1.0); CHOL/HDL RATIO 2.3; HDL CHOL % 43 % (28-40); HDL CHOLESTEROL (DIRECT) 53 mg/dL (40-60); LDL CHOLESTEROL,CALCULATED 29 mg/dL (54-169); LDL/HDL RATIO 0.5 (0.5-3.0); TOTAL PROTEIN 6.5 g/dL (6.4-8.2); TRIGLYCERIDES 208 mg/dL (50-200); VLDL CHOLESTEROL 42 mg/dL (0-25)
[2018-04-12] MEDS: HEPARIN 5,000 UNITS/ML, 1ML SQ SCH ×2 (04:56→12:30)
[2018-04-12] MEDS: SODIUM CHLORIDE 0.9% 1,000 ML IV SCH (04:57)
[2018-04-12] MEDS ORDERED: ASPIRIN 325 MG TABLET EC PO SCH (06:00)
[2018-04-12] MEDS: HYDROmorphone 2 MG/ML, 1ML IVPush PRN (06:22)
[2018-04-12] MEDS: INSULIN LISPRO 100 UNITS/ML, PEN SQ-INSULIN SCH ×3 (07:00→16:00)
[2018-04-12 07:01] VITALS: BP 104/65
[2018-04-12] MEDS: GABAPENTIN 100 MG CAPSULE PO SCH ×2 (08:26→16:29)
[2018-04-12 08:43] LABS: TROPONIN I < 0.015 ng/mL (0.000-0.045)
[2018-04-12] MEDS ORDERED: REGADENOSON 0.4 MG/5 ML SYRINGE ONE (08:47)
[2018-04-12] MEDS ORDERED: ALBUTEROL/IPRATROPIUM 2.5MG/0.5MG, 3 ML NPPB PRN (09:00)
[2018-04-12] MEDS ORDERED: DULOXETINE 30 MG CAPSULE.DR PO SCH (09:00)
[2018-04-12] MEDS ORDERED: SENNA/DOCUSATE TABLET PO SCH (09:00)
[2018-04-12] MEDS ORDERED: ASPIRIN 81 MG TABLET EC PO SCH (09:00)
[2018-04-12] MEDS ORDERED: GlyBURIDE 5 MG TABLET PO SCH (09:00)
[2018-04-12 12:17] VITALS: BP 117/78
[2018-04-12] MEDS ORDERED: KETOROLAC 30 MG/1 ML IV ONE (14:30)
[2018-04-12] MEDS ORDERED: KETOROLAC 30 MG/1 ML IVPush ONE (14:30)
[2018-04-12] MEDS ORDERED: KETOROLAC 30 MG/1 ML IM ONE (14:30)
== END 2018-04-12 16:51 | disposition home or self-care (01) ==
LOC: ED 18:04 → INTOOBSV 18:23 → EDIP 18:23 → 5SO 19:32
PROVIDERS: ADMIT Internal Medicine; ATTEND Internal Medicine
DX: R07.89 Other chest pain (principal); E11.40 Type 2 diabetes mellitus with diabetic neuropathy, unspecified; R11.2 Nausea with vomiting, unspecified; E66.9 Obesity, unspecified; F11.20 Opioid dependence, uncomplicated; F31.9 Bipolar disorder, unspecified; G89.29 Other chronic pain; I11.9 Hypertensive heart disease without heart failure; J44.9 Chronic obstructive pulmonary disease, unspecified; Z90.710 Acquired absence of both cervix and uterus
CPT/HCPCS: 36415; 71045; 78452; 80053; 80061; 81003; 82962; 83036; 83690; 83735; 83880; 84439; 84443; 84484; 85025; 85610; 85730; 93005; 93017; 93306; 94640; 96361; 96374; 96375; 96376; 99285; A9502; C9898; G0378; J1170; J1644; J1885; J2405; J2785; J7030; J7620

== ENCOUNTER 2018-04-20 23:10 | Emergency (ER) | payer MEDICARE, MEDICAID ==
[~2018-04-20] VITALS: Ht 170.2 cm; Wt 80.0 kg
[~2018-04-20 23:10] MED LIST changes: +GLYB5TAB3 PO
[2018-04-20 23:28] VITALS: BP 169/103
[2018-04-20] MEDS ORDERED: ONDANSETRON ODT 4 MG PO ONE (23:30)
[2018-04-20] MEDS ORDERED: ONDANSETRON ODT 4 MG ONE (23:38)
[2018-04-20 23:52] LABS: BASOPHILS # (AUTO) 0.04 x10^3/uL (0-0.1); BASOPHILS % (AUTO) 0 % (0-1); EOSINOPHILS # (AUTO) 0.14 x10^3/uL (0-0.4); EOSINOPHILS % (AUTO) 1 % (1-7); LYMPHOCYTES # (AUTO) 2.77 x10^3/uL (1-3.4); LYMPHOCYTES % (AUTO) 24 % (22-44); MD NO; MEAN CORPUSCULAR HEMOGLOBIN 30.6 pg (27.0-34.8); MEAN CORPUSCULAR VOLUME 89.9 fL (80-100); MEAN PLATELET VOLUME 7.6 fL (7.4-10.4); MONOCYTES # (AUTO) 0.67 x10^3/uL (0.2-0.8); MONOCYTES % (AUTO) 6 % (2-9); NEUTROPHILS # (AUTO) 8.02 x10^3/uL (1.8-6.8); NEUTROPHILS % (AUTO) 69 % (42-75); PLATELET COUNT 338 x10^3/uL (130-400); RED BLOOD COUNT 4.77 x10^6/uL (3.82-5.3); RED CELL DISTRIBUTION WIDTH 13.7 % (9.6-15.2)
[2018-04-20 23:54] LABS: CULTURE INDICATED? NO; MICROSCOPIC NOT IND
[2018-04-21 00:02] LABS: ALANINE AMINOTRANSFERASE 32 U/L (12-78); ANION GAP 10 mmol/L (5-15); CALCIUM 9.2 mg/dL (8.5-10.1); CHLORIDE 106 mmol/L (98-107)
[2018-04-21 00:07] LABS: ALKALINE PHOSPHATASE 60 U/L (45-117); BILIRUBIN,TOTAL 0.5 mg/dL (0.2-1.0); CREATININE 1.05 mg/dL (0.55-1.02); TOTAL PROTEIN 8.1 g/dL (6.4-8.2); TROPONIN I < 0.015 ng/mL (0.000-0.045)
[2018-04-21] MEDS ORDERED: ACETAMINOPHEN 500 MG TABLET ONE (00:12)
[2018-04-21] MEDS ORDERED: ACETAMINOPHEN 500 MG TABLET PO ONE (00:30)
== END 2018-04-21 01:04 | disposition home or self-care (01) ==
LOC: ED 23:59
DX: M54.6 Pain in thoracic spine (principal); R53.1 Weakness; F17.200 Nicotine dependence, unspecified, uncomplicated; I10 Essential (primary) hypertension; J44.9 Chronic obstructive pulmonary disease, unspecified; E11.65 Type 2 diabetes mellitus with hyperglycemia
CPT/HCPCS: 71045; 80053; 81003; 82962; 83605; 83690; 84484; 85025; 93005; 99285; Q0162

== ENCOUNTER 2018-05-17 17:08 | Emergency (ER) | payer MEDICARE, MEDICAID ==
[~2018-05-17] VITALS: Ht 170.2 cm; Wt 101.0 kg
[2018-05-17] MEDS ORDERED: KETOROLAC 30 MG/1 ML IVPush ONE (17:30)
[2018-05-17] MEDS ORDERED: DIPHENHYDRAMINE 50 MG/ML, 1ML IVPush ONE ×2 (17:30→19:00)
[2018-05-17] MEDS ORDERED: SODIUM CHLORIDE 0.9% 1,000ML IVBOLUS ONE (17:30)
[2018-05-17] MEDS ORDERED: METOCLOPRAMIDE 5 MG/ML, 2ML IVPush ONE ×2 (17:30→19:00)
[2018-05-17] MEDS ORDERED: SUMATRIPTAN 6MG/0.5ML SQ ONE ×2 (17:30→17:57)
[2018-05-17] MEDS ORDERED: PLEASE ENTER HEIGHT AND WEIGHT MC SCH (17:31)
[2018-05-17] MEDS ORDERED: LISI-170 PO (17:35)
[2018-05-17] MEDS ORDERED: TIZA4CAP PO (17:35)
[2018-05-17] MEDS ORDERED: BACL20TA PO (17:35)
[2018-05-17] MEDS ORDERED: HYDR25TA6 PO (17:35)
[2018-05-17] MEDS ORDERED: METOCLOPRAMIDE 5 MG/ML, 2ML ONE ×2 (17:57→19:00)
[2018-05-17] MEDS ORDERED: DIPHENHYDRAMINE 50 MG/ML, 1ML ONE ×2 (17:57→19:00)
[2018-05-17] MEDS ORDERED: KETOROLAC 30 MG/1 ML ONE (17:57)
[2018-05-17 18:12] VITALS: BP 183/99
[2018-05-17] MEDS ORDERED: DIHYDROERGOTAMINE 1 MG/ML, 1ML IM ONE (19:00)
== END 2018-05-17 19:41 | disposition home or self-care (01) ==
LOC: ED 18:15
DX: G43.119 Migraine with aura, intractable, without status migrainosus (principal); J44.9 Chronic obstructive pulmonary disease, unspecified; I10 Essential (primary) hypertension; E11.65 Type 2 diabetes mellitus with hyperglycemia
CPT/HCPCS: 96361; 96372; 96374; 96375; 96376; 99283; J1110; J1200; J1885; J2765; J3030; J7030

== ENCOUNTER 2018-10-11 19:39 | Emergency (ER) | payer MEDICARE, MEDICAID ==
[~2018-10-11 19:39] MED LIST changes: +BACL20TA PO; +HYDR25TA6 PO; +LISI-170 PO; +TIZA4CAP PO; -TRAZ-136 PO; +TRAZ50TA66 PO
--- NOTE | 2018-10-11 19:48 | NUR ---
THIS IS A 58 Y/O FEMALE ARRIVING EMS FROM HOME FOR INCREASED ABD PAIN. PT REPORTS CHRONIC HX OF ABD PAIN X 2 YEARS. PT REPORTS DECREASED PO INTAKE AND LACK OF FLUIDS. PT REPORTS THAT HER ABD PAIN IS DIFFUSE THROUGHOUT. PT DENIES ANY TRAUMA AND HAS NO ABD BRUISING PRESENT. PT CONNECTED TO MONITORS AND CALL LIGHT IN REACH. AWAITING FURTHHER ORDERS.
[2018-10-11] MEDS ORDERED: ONDANSETRON 2MG/ML, 2ML ONE (20:11)
[2018-10-11] MEDS ORDERED: HYDROmorphone 1 MG/ML, 1ML VIAL ONE ×3 (20:12→21:00)
[2018-10-11] MEDS: HYDROmorphone 2 MG/ML, 1ML IVPush PRN ×2 (20:19→21:04)
--- NOTE | 2018-10-11 20:19 | NUR ---
PT MEDICATED FOR PAIN. PT UNABLE TO COLLECT UA SAMPLE. PT MISSED CUP.
[2018-10-11 20:21] VITALS: BP 128/76
[2018-10-11 20:23] LABS: BASOPHILS # (AUTO) 0.08 x10^3/uL (0-0.1); BASOPHILS % (AUTO) 1 % (0-1); EOSINOPHILS # (AUTO) 0.18 x10^3/uL (0-0.4); EOSINOPHILS % (AUTO) 1 % (1-7); LYMPHOCYTES # (AUTO) 4.46 x10^3/uL (1-3.4); LYMPHOCYTES % (AUTO) 33 % (22-44); MD NO; MEAN CORPUSCULAR HEMOGLOBIN 30.6 pg (27.0-34.8); MEAN CORPUSCULAR HGB CONC 33.8 g/dL (32.4-35.8); MEAN CORPUSCULAR VOLUME 90.6 fL (80-100); MEAN PLATELET VOLUME 7.9 fL (7.4-10.4); MONOCYTES # (AUTO) 0.89 x10^3/uL (0.2-0.8); MONOCYTES % (AUTO) 7 % (2-9); NEUTROPHILS # (AUTO) 7.89 x10^3/uL (1.8-6.8); NEUTROPHILS % (AUTO) 59 % (42-75); PLATELET COUNT 297 x10^3/uL (130-400); RED BLOOD COUNT 5.22 x10^6/uL (3.82-5.3); RED CELL DISTRIBUTION WIDTH 12.7 % (9.6-15.2)
[2018-10-11] MEDS ORDERED: ONDANSETRON 2MG/ML, 2ML IVPush ONE (20:30)
[2018-10-11] MEDS ORDERED: SODIUM CHLORIDE FLUSH 10ML SYR IVF ONE (20:30)
[2018-10-11 20:35] LABS: ALANINE AMINOTRANSFERASE 33 U/L (12-78); ALBUMIN 4.6 g/dL (3.4-5.0); ANION GAP 10 mmol/L (5-15); CALCIUM 9.5 mg/dL (8.5-10.1); CHLORIDE 105 mmol/L (98-107); CREATININE 0.79 mg/dL (0.55-1.02)
[2018-10-11 20:38] LABS: ALKALINE PHOSPHATASE 65 U/L (45-117); BILIRUBIN,TOTAL 0.7 mg/dL (0.2-1.0); TOTAL PROTEIN 8.1 g/dL (6.4-8.2)
--- NOTE | 2018-10-11 21:04 | NUR ---
SECOND DOSE OF DILUDID GIVEN TO PT. PT REPORTS POOR PAIN CONTROL.
--- NOTE | 2018-10-11 22:10 | NUR ---
PT ASKED FOR UA AT THIS TIME.
--- NOTE | 2018-10-11 22:29 | NUR ---
TASK RN: PEGGY COLLECTED AND SENT TO LAB
--- NOTE | 2018-10-11 22:29 | NUR ---
UA SENT TO LAB
[2018-10-11 22:37] LABS: MICROSCOPIC NOT IND
[2018-10-11 22:41] LABS: CULTURE INDICATED? NO
--- NOTE | 2018-10-11 23:04 | NUR ---
Patient/Caregiver given discharge instructions and they have confirmed that they understand the instructions. Patient ambulatory with steady gait.
== END 2018-10-11 23:06 | disposition home or self-care (01) ==
LOC: ED 19:41
DX: R10.12 Left upper quadrant pain (principal); R10.84 Generalized abdominal pain; E11.65 Type 2 diabetes mellitus with hyperglycemia; J44.9 Chronic obstructive pulmonary disease, unspecified; I10 Essential (primary) hypertension
CPT/HCPCS: 36415; 74176; 80053; 81003; 83690; 85025; 96374; 96375; 96376; 99284; J1170; J2405

== ENCOUNTER 2019-06-09 20:15 | Emergency (ER) | payer MEDICARE, MEDICAID ==
[~2019-06-09] VITALS: Ht 167.6 cm; Wt 115.8 kg
[~2019-06-09 20:15] MED LIST changes: +ALBU18HF INH; +ALPR1TAB6 PO; +AZIT500T10 PO; +BACL-19 PO; +BUPR-173 PO; +BUPR100T8 PO; +CARB200T4 PO; +DOXE100C PO; +DOXY100C2 PO; +DULO30CA44 PO; +GLIM2TAB3 PO; +GUAI600T31 PO; +IPRA3AMP30 HHN; +LISI1TAB20 PO; -LISI1TAB7 PO; +METH10TA3 PO; +OXYC20TA2 PO; +PRAZ2CAP2 PO; +PRED5TAB PO; +QUET100T PO; +SERT25TA3 PO; +SIMV40TA3 PO
[2019-06-09 20:24] VITALS: BP 126/99
[2019-06-09] MEDS ORDERED: DIPHENHYDRAMINE 25 MG CAPSULE ONE (21:14)
[2019-06-09] MEDS ORDERED: METHOCARBAMOL 750 MG TABLET ONE (21:14)
[2019-06-09 21:20] LABS: MEAN CORPUSCULAR HEMOGLOBIN 30.8 pg (27.0-34.8); MEAN CORPUSCULAR HGB CONC 33.3 g/dL (32.4-35.8); MEAN CORPUSCULAR VOLUME 92.4 fL (80-100); MEAN PLATELET VOLUME 7.8 fL (7.4-10.4); PLATELET COUNT 292 x10^3/uL (130-400); RED BLOOD COUNT 4.51 x10^6/uL (3.82-5.3); RED CELL DISTRIBUTION WIDTH 12.7 % (9.6-15.2)
[2019-06-09 21:29] LABS: ANION GAP 9 mmol/L (5-15); CALCIUM 8.5 mg/dL (8.5-10.1); CHLORIDE 101 mmol/L (98-107); CREATININE 1.05 mg/dL (0.55-1.02)
[2019-06-09] MEDS ORDERED: METHOCARBAMOL 750 MG TABLET PO ONE (21:30)
[2019-06-09] MEDS ORDERED: DIPHENHYDRAMINE 25 MG CAPSULE PO ONE (21:30)
[2019-06-09 21:48] LABS: MD YES
[2019-06-09 21:49] LABS: BASOS#(MANUAL) 0.18 x10^3/uL (0-0.1); BASOS% (MANUAL) 1 % (0-1); EOS#(MANUAL) 0.35 x10^3/uL (0.0-0.4); EOS% (MANUAL) 2 % (1-7); LYMPH#(MANUAL) 6.48 x10^3/uL (1-3.4); LYMPHS% (MANUAL) 37 % (22-44); MONOS#(MANUAL) 0.53 x10^3/uL (0.3-2.7); MONOS% (MANUAL) 3 % (2-9); REACTIVE LYMPHS % (MANUAL) 4 % (0-0); SEG#(MANUAL) 9.28 x10^3/uL (1.8-6.8); SEGS% (MANUAL) 53 % (42-75)
[2019-06-09 21:50] LABS: <PLATELET ESTIMATE> ADEQUATE; <PLT MORPHOLOGY> NORMAL PLT MORPH; PMNS WITH VACUOLES 1+
[2019-06-09 21:51] LABS: <RBC MORPHOLOGY> NORMAL
--- NOTE | 2019-06-09 21:56 | NUR ---
PT REPORTS IMPROVEMENT IN DISCOMFORT WITH MEDICATIONS. PT REPORTS "ITS ALMOST TIME TO TAKE MY PAIN MEDS, CAN I GET THEM HERE". PT REPORTEDLY TAKES HYDROCODONE 20MG. ERP AWARE. NO NEW ORDERS RECEIVED.
[2019-06-09 21:59] LABS: ALBUMIN 3.5 g/dL (3.4-5.0); BILIRUBIN, DIRECT 0.1 mg/dL (0.1-0.2)
[2019-06-09 22:01] LABS: BILIRUBIN,INDIRECT 0.3 mg/dL (0.0-2.0); BILIRUBIN,TOTAL 0.4 mg/dL (0.2-1.0); TOTAL PROTEIN 6.6 g/dL (6.4-8.2)
--- NOTE | 2019-06-09 22:30 | NUR ---
DC EDUCATION PROVIDED, PT DEMONSTRATES UNDERSTANDING. PT AMBULATED STEADILY TO DC WITH RN. FRIEND TO TRANSPORT PT HOME.
[2019-06-09] MEDS ORDERED: NEOSPORIN OINT. PKT 1 PACKET ONE (22:35)
== END 2019-06-09 22:55 | disposition home or self-care (01) ==
LOC: ED 21:50
DX: M54.2 Cervicalgia (principal); M79.632 Pain in left forearm; M79.631 Pain in right forearm; M79.652 Pain in left thigh; M79.651 Pain in right thigh; R07.89 Other chest pain; M54.9 Dorsalgia, unspecified; R21 Rash and other nonspecific skin eruption; G89.29 Other chronic pain; I10 Essential (primary) hypertension; E11.9 Type 2 diabetes mellitus without complications; J44.9 Chronic obstructive pulmonary disease, unspecified; G43.909 Migraine, unspecified, not intractable, without status migrainosus; Z90.49 Acquired absence of other specified parts of digestive tract; Z90.710 Acquired absence of both cervix and uterus
CPT/HCPCS: 36415; 80048; 80076; 85025; 99283; Q0163

== ENCOUNTER 2020-04-02 13:53 | Emergency (ER) | payer MEDICARE, MEDICAID ==
[~2020-04-02] VITALS: Ht 167.6 cm; Wt 106.4 kg
[~2020-04-02 13:53] MED LIST changes: -GLIM2TAB3 PO; +GLIM2TAB7 PO; +SIMV40TA20 PO; -SIMV40TA3 PO; -TRAZ-137 PO; +TRAZ-175 PO
--- NOTE | 2020-04-02 14:30 | NUR ---
PT C/O LOWER BACK PAIN AFTER GLF YESTERDAY. PT STATES SHE HAD 1 EPISODE OF NAUSEA/VOMITING AFTER A COUGHING SPELL. PT TESTED FOR COVID AND STREP AND ALL TESTS CAME BACK NEGATIVE. PT DENIES NUMBNESS/TINGLING TO EXT'S. PT RATES PAIN 01/30.
[2020-04-02] MEDS ORDERED: OXYcodone/APAP 10/325MG TABLET ONE (15:27)
[2020-04-02] MEDS ORDERED: OXYcodone/APAP 10/325MG TABLET PO ONE (15:30)
--- NOTE | 2020-04-02 15:31 | NUR ---
MEDICATED NOTED ON MAR FOR LOW BACK PAIN
--- NOTE | 2020-04-02 15:37 | NUR ---
PT UP TO GO TO THE BATHROOM.
--- NOTE | 2020-04-02 15:41 | NUR ---
PT MEDICATED PER AUG. PT STATES NO RELIEF FROM PAIN MEDS.
--- NOTE | 2020-04-02 15:48 | NUR ---
PT OFF FLOOR TO XRAY
--- NOTE | 2020-04-02 16:09 | NUR ---
UOB TO BATHROOM AND IN TEARS BECAUSE OF BACK PAIN. REQUESTING ADDITIONAL PAIN MEDICATION. PA AWARE.
[2020-04-02] MEDS ORDERED: OXYcodone 5 MG/5 ML ORAL.SOL UDC ONE (16:17)
--- NOTE | 2020-04-02 16:21 | NUR ---
PT MEDICATED PER AUG. AWAITING FURTHER ORDERS AND RESULTS.
[2020-04-02 16:28] VITALS: BP 134/83
[2020-04-02] MEDS ORDERED: OXYcodone 5 MG/5 ML ORAL.SOL UDC PO ONE (16:30)
--- NOTE | 2020-04-02 16:35 | NUR ---
PT REC'VD DISCHARGE INSTRUCTIONS AND EDUCATION. PT STATES NO QUESTIONS. PT AMBULATED TO DC DESK, STEADY GAIT.
== END 2020-04-02 16:38 | disposition home or self-care (01) ==
LOC: ED 15:23
DX: S39.012A Strain of muscle, fascia and tendon of lower back, initial encounter (principal); I10 Essential (primary) hypertension; E11.9 Type 2 diabetes mellitus without complications; G89.29 Other chronic pain; J44.9 Chronic obstructive pulmonary disease, unspecified; G43.909 Migraine, unspecified, not intractable, without status migrainosus; E78.5 Hyperlipidemia, unspecified; W01.0XXA Fall on same level from slipping, tripping and stumbling without subsequent striking against object, initial encounter; Y93.89 Activity, other specified; Y92.410 Unspecified street and highway as the place of occurrence of the external cause; Y99.8 Other external cause status
CPT/HCPCS: 72110; 99283

== ENCOUNTER 2020-04-17 20:09 | Emergency (ER) | payer MEDICARE, MEDICAID ==
[~2020-04-17] VITALS: Ht 167.6 cm; Wt 109.0 kg
--- NOTE | 2020-04-17 20:50 | NUR ---
RECEIVED REPORT FROM HERBIE BEEBE TO ASSUME CARE OF PT. AT THIS TIME.
[2020-04-17] MEDS ORDERED: SODIUM CHLORIDE FLUSH 10ML SYR IVF ONE (21:00)
--- NOTE | 2020-04-17 21:00 | NUR ---
PT. TO ED WITH C/O RIGHT SIDE ABD PAIN X 2 DAYS. C/O NAUSEA. DENIES DIARRHEA. STATES "I CAN'T EVEN DRINK WATER". STATES TAKES 30MG OXYCODONE AT HOME 4 X DAILY "AND THAT'S NOT EVEN TOUCHING THE PAIN. PT. PROVIDED CLEAN CATCH PEGGY. ANA LILIA BLOCK AT FOR EVAL.
[2020-04-17 21:21] LABS: MICROSCOPIC NOT IND
[2020-04-17] MEDS ORDERED: HYDROmorphone 1 MG/ML, 1ML INJ ONE (21:27)
[2020-04-17] MEDS ORDERED: HYDROmorphone 1 MG/ML, 1ML INJ IM ONE (21:30)
[2020-04-17 21:51] LABS: BASOPHILS % (AUTO) 1 % (0-1); EOSINOPHILS % (AUTO) 2 % (1-7); LYMPHOCYTES % (AUTO) 41 % (22-44); MEAN CORPUSCULAR HEMOGLOBIN 29.6 pg (27.0-34.8); MEAN CORPUSCULAR HGB CONC 32.9 g/dL (32.4-35.8); MEAN PLATELET VOLUME 7.2 fL (7.4-10.4); MONOCYTES % (AUTO) 7 % (2-9); NEUTROPHILS % (AUTO) 50 % (42-75); PLATELET COUNT 268 x10^3/uL (130-400); RED BLOOD COUNT 4.53 x10^6/uL (3.82-5.3); RED CELL DISTRIBUTION WIDTH 13.6 % (9.6-15.2)
[2020-04-17 21:55] LABS: MD NO
[2020-04-17 21:58] LABS: ALANINE AMINOTRANSFERASE 23 U/L (12-78); ALBUMIN 3.5 g/dL (3.4-5.0); ANION GAP 7 mmol/L (5-15); CALCIUM 8.8 mg/dL (8.5-10.1); CHLORIDE 105 mmol/L (98-107)
[2020-04-17 22:03] LABS: ALKALINE PHOSPHATASE 60 U/L (45-117); BILIRUBIN,TOTAL 0.4 mg/dL (0.2-1.0); CREATININE 0.89 mg/dL (0.55-1.02); TOTAL PROTEIN 7.2 g/dL (6.4-8.2); TROPONIN I < 0.015 ng/mL (0.000-0.045)
[2020-04-17] MEDS ORDERED: OXYcodone/APAP 10/325MG TABLET ONE (22:09)
[2020-04-17 22:14] VITALS: BP 100/78
[2020-04-17] MEDS ORDERED: OXYcodone/APAP 10/325MG TABLET PO ONE (22:30)
== END 2020-04-17 22:41 | disposition home or self-care (01) ==
LOC: ED 22:10
DX: R10.11 Right upper quadrant pain (principal); R07.89 Other chest pain; R94.31 Abnormal electrocardiogram [ECG] [EKG]; G43.909 Migraine, unspecified, not intractable, without status migrainosus; I10 Essential (primary) hypertension; J44.9 Chronic obstructive pulmonary disease, unspecified; Z90.49 Acquired absence of other specified parts of digestive tract
CPT/HCPCS: 36415; 71045; 80053; 81003; 83690; 84484; 85025; 93005; 96372; 99285; J1170

== ENCOUNTER 2020-04-21 13:14 | Emergency (ER) | payer MEDICARE, MEDICAID ==
[~2020-04-21] VITALS: Ht 170.2 cm; Wt 98.6 kg
[2020-04-21 13:19] VITALS: BP 136/80
--- NOTE | 2020-04-21 13:34 | NUR ---
SENT BY [facility] ON A LEGAL HOLD. PT CHECKED IN AT FACILITY LAST PM AT 1900. PT REPORTS STAYING THE NIGHT AND THIS AM PT WAS PLACED ON A LEGAL HOLD BY STAFF FOR STATEMENTS REGARDING WANTING "TO END IT ALL" VIA HEROIN OVERDOSE. PT REPORTS RACING THOUGHTS AND STATES SHE IS HAVING EMOTIONAL AND PHYSICAL PAIN. PT SELF REPORTED TO STAFF OVER THE LAST 3 DAYS SHE HAS TAKEN MORE ATIVAN THAN SUPOOSED TO. PT ALSO REQUESTS A RAPID COVID BUT DENIES ANY SYMPTOMS
--- NOTE | 2020-04-21 13:35 | NUR ---
PT CHANGED INTO GOWN. ROOM SECURE, BELONGINGS IN LOCKER, SITTER IN HALLWAY.
--- NOTE | 2020-04-21 13:54 | NUR ---
PT WOULD LIKE DAUGHTER AND SPONSORS NUMBERS IN HER CHART. DAUGHTER [phone] SPONSORS KESHIA [phone]
[2020-04-21] MEDS ORDERED: DIAZEPAM 5 MG/ML, 2ML ONE (13:58)
[2020-04-21] MEDS ORDERED: DIAZEPAM 5 MG/ML, 2ML IM ONE (14:00)
--- NOTE | 2020-04-21 14:15 | NUR ---
MEDICATED PER ORDERS, SENT UA. LAB BEDSIDE
[2020-04-21 14:18] LABS: MICROSCOPIC NOT IND
[2020-04-21 14:28] LABS: BASOPHILS % (AUTO) 1 % (0-1); EOSINOPHILS % (AUTO) 1 % (1-7); LYMPHOCYTES % (AUTO) 22 % (22-44); MEAN CORPUSCULAR HEMOGLOBIN 29.6 pg (27.0-34.8); MEAN CORPUSCULAR HGB CONC 32.9 g/dL (32.4-35.8); MEAN PLATELET VOLUME 6.9 fL (7.4-10.4); MONOCYTES % (AUTO) 7 % (2-9); NEUTROPHILS % (AUTO) 71 % (42-75); PLATELET COUNT 283 x10^3/uL (130-400); RED BLOOD COUNT 4.77 x10^6/uL (3.82-5.3); RED CELL DISTRIBUTION WIDTH 13.7 % (9.6-15.2)
[2020-04-21 14:29] LABS: AMPHETAMINE SCREEN, URINE Negative (Negative); BARBITURATE SCREEN, URINE Negative (Negative); BENZODIAZEPINE SCREEN, URINE Negative (Negative); CANNABINOID SCREEN, URINE Negative (Negative); COCAINE SCREEN, URINE Negative (Negative); METHADONE SCREEN, URINE Positive (Negative); OPIATE SCREEN, URINE Negative (Negative)
[2020-04-21 14:29] LABS: MD NO
[2020-04-21] MEDS ORDERED: OXYcodone/APAP 10/325MG TABLET ONE (14:55)
[2020-04-21] MEDS ORDERED: OXYcodone/APAP 10/325MG TABLET PO ONE (15:00)
[2020-04-21 15:18] LABS: ANION GAP 6 mmol/L (5-15); CALCIUM 8.8 mg/dL (8.5-10.1); CHLORIDE 108 mmol/L (98-107); CREATININE 0.83 mg/dL (0.55-1.02)
[2020-04-21 15:19] LABS: ALANINE AMINOTRANSFERASE 27 U/L (12-78); ALBUMIN 3.9 g/dL (3.4-5.0); SALICYLATE LEVEL 3.5 mg/dL (2.8-20.0)
[2020-04-21 15:21] LABS: ALKALINE PHOSPHATASE 57 U/L (45-117); BILIRUBIN,TOTAL 0.9 mg/dL (0.2-1.0); TOTAL PROTEIN 7.6 g/dL (6.4-8.2)
--- NOTE | 2020-04-21 15:41 | NUR ---
THROUGHPUT: PT MEDICALLY CLEARED REFERRED TO [facility], COVID SWAB COMPLETED
--- NOTE | 2020-04-21 15:44 | NUR ---
PT DEMANDING PAIN MEDS, STATES SHE TAKES 30 MG OXY PER DOSE. WANTS A PIAN SHOT. PT VERBALLY ABUSIVE TO RN . MEDICATED PER ORDERS.
--- NOTE | 2020-04-21 15:52 | NUR ---
THROUGHPUT: [facility] ACCEPTED PT, TO ROOM 392 PT IS ON A LEGAL HOLD AND MEDICALLY CLEARED
--- NOTE | 2020-04-21 16:28 | NUR ---
PT KEEP COMING OUT OF ROOM DEMANDING TO SEE LEGAL HOLD. PLACE TO GO UPSTAIRS TO BEHAVIORAL HEALTH UNIT
--- NOTE | 2020-04-21 16:57 | NUR ---
REPORT TO [facility] [[email or web address]]. PT READY FOR TRANSFER. ALL BELONGINGS W PT.
[2020-04-21] MEDS ORDERED: ACETAMINOPHEN 325 MG TABLET PO PRN (17:00)
[2020-04-21] MEDS ORDERED: BISACODYL 10 MG SUPP PR PRN (17:00)
[2020-04-21] MEDS ORDERED: POLYETHYLENE GLYCOL 17 GM PACKET PO PRN (17:00)
[2020-04-21] MEDS ORDERED: ONDANSETRON ODT 4 MG PO PRN (17:00)
[2020-04-22] MEDS ORDERED: GLIM4TAB8 PO (05:49)
[2020-04-22] MEDS ORDERED: LISI-170 PO (05:49)
[2020-04-22] MEDS ORDERED: PRAZ2CAP2 PO (05:49)
[2020-04-22] MEDS ORDERED: LORA2TAB99 PO (05:49)
[2020-04-22] MEDS ORDERED: OXYC-307 PO (05:49)
[2020-04-22] MEDS ORDERED: TIZA4CAP PO (05:49)
[2020-04-22] MEDS ORDERED: SPIR100T4 PO (05:49)
== END 2020-04-22 10:12 ==
LOC: ED 13:47
DX: F32.9 Major depressive disorder, single episode, unspecified (principal); Z20.818 Contact with and (suspected) exposure to other bacterial communicable diseases; R45.851 Suicidal ideations; G89.29 Other chronic pain; M54.9 Dorsalgia, unspecified; I10 Essential (primary) hypertension; E11.9 Type 2 diabetes mellitus without complications; J44.9 Chronic obstructive pulmonary disease, unspecified; E78.5 Hyperlipidemia, unspecified; F17.200 Nicotine dependence, unspecified, uncomplicated; G43.909 Migraine, unspecified, not intractable, without status migrainosus; Z90.710 Acquired absence of both cervix and uterus; Z90.49 Acquired absence of other specified parts of digestive tract
CPT/HCPCS: 36415; 80053; 80307; 81003; 85025; 87635; 96372; 99285; J3360

== ENCOUNTER 2020-04-21 16:12 | Inpatient (IN) | payer MEDICARE, MEDICAID ==
[~2020-04-21] VITALS: Ht 167.6 cm; Wt 108.6 kg
[2020-04-21] MEDS ORDERED: POLYETHYLENE GLYCOL 17 GM PACKET PO PRN (17:00)
[2020-04-21] MEDS ORDERED: BISACODYL 10 MG SUPP PR PRN (17:00)
[2020-04-21] MEDS ORDERED: ACETAMINOPHEN 325 MG TABLET PO PRN (17:00)
[2020-04-21] MEDS ORDERED: ONDANSETRON ODT 4 MG PO PRN (17:00)
[2020-04-21 17:29] VITALS: BP 115/73
[2020-04-21] MEDS ORDERED: NICOTINE 21 MG/24 HR PATCH.TD24 TD ONE (19:00)
[2020-04-21 19:10] VITALS: BP 126/85
[2020-04-21] MEDS: GLIMEPIRIDE 4 MG TABLET PO SCH (21:00)
[2020-04-21] MEDS ORDERED: OXYcodone IR 5MG TABLET ONE (21:32)
[2020-04-21] MEDS: OXYcodone/APAP 10/325MG TABLET PO PRN (21:36)
[2020-04-21] MEDS: OXYcodone IR 30 MG TABLET PO PRN (22:30)
[2020-04-21] MEDS: ALBUTEROL-IPRATROPIUM MDI INH INH SCH (22:52)
[2020-04-21] MEDS: TRAZODONE 150MG TABLET PO SCH (22:56)
[2020-04-21] MEDS: SIMVASTATIN 40 MG TABLET PO SCH (22:57)
[2020-04-22] MEDS ORDERED: OXYcodone IR 5MG TABLET ONE ×2 (04:32→20:38)
[2020-04-22] MEDS: ALBUTEROL HFA 90 MCG/SPRAY INH PRN (04:40)
[2020-04-22] MEDS: OXYcodone IR 30 MG TABLET PO PRN ×2 (04:41→21:28)
[2020-04-22] MEDS ORDERED: TIZA4CAP PO (05:49)
[2020-04-22] MEDS ORDERED: LORA2TAB99 PO (05:49)
[2020-04-22] MEDS ORDERED: OXYC-307 PO (05:49)
[2020-04-22] MEDS ORDERED: GLIM4TAB8 PO (05:49)
[2020-04-22] MEDS ORDERED: LISI-170 PO (05:49)
[2020-04-22] MEDS ORDERED: PRAZ2CAP2 PO (05:49)
[2020-04-22] MEDS ORDERED: SPIR100T4 PO (05:49)
[2020-04-22] MEDS ORDERED: ONDANSETRON ODT 4 MG PO PRN (06:30)
[2020-04-22] MEDS ORDERED: ONDANSETRON ODT 4 MG ONE (06:31)
[2020-04-22 07:18] VITALS: BP 110/72
[2020-04-22 07:38] LABS: FREE T4 (FREE THYROXINE) 0.93 ng/dL (0.76-1.46); LDL/HDL RATIO 0.6 (0.5-3.0)
[2020-04-22] MEDS: GLIMEPIRIDE 4 MG TABLET PO SCH ×2 (07:51→21:28)
[2020-04-22] MEDS: NICOTINE 21 MG/24 HR PATCH.TD24 TD SCH (07:53)
[2020-04-22] MEDS: OXYcodone/APAP 10/325MG TABLET PO PRN (07:53)
[2020-04-22] MEDS: FLUTICASONE/VILANTEROL 200-25MCG/INH INH SCH ×2 (09:00→10:12)
[2020-04-22] MEDS: ALBUTEROL-IPRATROPIUM MDI INH INH SCH ×3 (09:00→20:00)
[2020-04-22] MEDS ORDERED: OXYcodone IR 5MG TABLET PO PRN ×3 (10:00→14:30)
[2020-04-22] MEDS ORDERED: OXYcodone IR 5MG TABLET PO ONE (12:00)
[2020-04-22] MEDS: DULOXETINE 30 MG CAPSULE.DR PO SCH (12:08)
[2020-04-22] MEDS: LORazepam 1MG TABLET PO PRN ×2 (12:57→19:38)
[2020-04-22] MEDS: GABAPENTIN 100 MG CAPSULE PO SCH ×2 (16:14→22:13)
[2020-04-22 19:54] VITALS: BP 121/85
[2020-04-22] MEDS: PRAZOSIN 2 MG CAPSULE PO SCH (21:00)
[2020-04-22] MEDS: SIMVASTATIN 40 MG TABLET PO SCH (22:14)
[2020-04-22] MEDS: TRAZODONE 150MG TABLET PO SCH (22:14)
[2020-04-23] MEDS: ALBUTEROL HFA 90 MCG/SPRAY INH PRN (03:10)
[2020-04-23] MEDS ORDERED: OXYcodone IR 5MG TABLET ONE ×3 (03:15→15:17)
[2020-04-23] MEDS: OXYcodone IR 30 MG TABLET PO PRN ×3 (03:46→21:46)
[2020-04-23] MEDS: LORazepam 1MG TABLET PO PRN ×3 (06:11→20:07)
[2020-04-23 07:06] VITALS: BP 116/77
[2020-04-23 07:37] LABS: ANION GAP 4 mmol/L (5-15); CALCIUM 8.9 mg/dL (8.5-10.1); CHLORIDE 108 mmol/L (98-107); CREATININE 0.79 mg/dL (0.55-1.02)
[2020-04-23] MEDS: ALBUTEROL-IPRATROPIUM MDI INH INH SCH ×2 (09:00→19:45)
[2020-04-23] MEDS: LINAGLIPTIN 5 MG TAB PO SCH ×2 (09:00→09:24)
[2020-04-23] MEDS: FLUTICASONE/VILANTEROL 200-25MCG/INH INH SCH (09:00)
[2020-04-23] MEDS: LISINOPRIL 20 MG TABLET PO SCH (09:24)
[2020-04-23] MEDS: SPIRONOLACTONE 100 MG TABLET PO SCH (09:25)
[2020-04-23] MEDS: GABAPENTIN 100 MG CAPSULE PO SCH ×3 (09:25→20:07)
[2020-04-23] MEDS: DULOXETINE 30 MG CAPSULE.DR PO SCH ×2 (09:26→12:37)
[2020-04-23] MEDS: GLIMEPIRIDE 4 MG TABLET PO SCH ×2 (09:26→20:06)
[2020-04-23] MEDS: NICOTINE 21 MG/24 HR PATCH.TD24 TD SCH (09:32)
[2020-04-23] MEDS ORDERED: TIZANIDINE 4MG TABLET PO SCH (12:00)
[2020-04-23] MEDS: TIZANIDINE 4MG TABLET PO SCH ×2 (13:32→17:03)
[2020-04-23] MEDS ORDERED: OXYcodone IR 5MG TABLET PO PRN (15:30)
[2020-04-23] MEDS ORDERED: OXYcodone IR 30 MG TABLET PO PRN (15:30)
[2020-04-23 19:50] VITALS: BP 99/72
[2020-04-23] MEDS: SIMVASTATIN 40 MG TABLET PO SCH (20:06)
[2020-04-23] MEDS: PRAZOSIN 2 MG CAPSULE PO SCH (20:07)
[2020-04-23] MEDS: TRAZODONE 150MG TABLET PO SCH (20:07)
[2020-04-24] MEDS: LORazepam 1MG TABLET PO PRN ×2 (04:36→14:42)
[2020-04-24] MEDS: OXYcodone IR 30 MG TABLET PO PRN ×3 (06:30→13:50)
[2020-04-24 07:00] VITALS: BP 127/77
[2020-04-24] MEDS: ALBUTEROL-IPRATROPIUM MDI INH INH SCH (08:14)
[2020-04-24] MEDS: FLUTICASONE/VILANTEROL 200-25MCG/INH INH SCH (08:15)
[2020-04-24] MEDS: SPIRONOLACTONE 100 MG TABLET PO SCH (08:16)
[2020-04-24] MEDS: GLIMEPIRIDE 4 MG TABLET PO SCH (08:16)
[2020-04-24] MEDS: GABAPENTIN 100 MG CAPSULE PO SCH ×2 (08:17→16:27)
[2020-04-24] MEDS: DULOXETINE 30 MG CAPSULE.DR PO SCH ×2 (08:19)
[2020-04-24] MEDS: LISINOPRIL 20 MG TABLET PO SCH (08:20)
[2020-04-24] MEDS: NICOTINE 21 MG/24 HR PATCH.TD24 TD SCH (08:20)
[2020-04-24] MEDS: TIZANIDINE 4MG TABLET PO SCH ×2 (09:03→12:00)
[2020-04-24] MEDS ORDERED: DULO30CA2 PO ×2 (14:18)
[2020-04-24] MEDS ORDERED: NICO-487 TD (14:18)
[2020-04-24] MEDS ORDERED: JANUVIA HOMEMEDPO (14:18)
== END 2020-04-24 17:10 | disposition home or self-care (01) | DRG 885 ==
LOC: 3E 17:11
PROVIDERS: ADMIT Psychiatry & Neurology Psychosomatic Medicine; ATTEND Psychiatry & Neurology Psychosomatic Medicine
DX: F33.2 Major depressive disorder, recurrent severe without psychotic features (principal); F11.20 Opioid dependence, uncomplicated; F41.1 Generalized anxiety disorder; E11.9 Type 2 diabetes mellitus without complications; E78.5 Hyperlipidemia, unspecified; G89.29 Other chronic pain; I10 Essential (primary) hypertension; M48.00 Spinal stenosis, site unspecified; Z79.84 Long term (current) use of oral hypoglycemic drugs; Z79.899 Other long term (current) drug therapy; Z90.710 Acquired absence of both cervix and uterus; Z88.2 Allergy status to sulfonamides; Z88.5 Allergy status to narcotic agent; Z88.0 Allergy status to penicillin; Z91.013 Allergy to seafood; Z80.3 Family history of malignant neoplasm of breast; Z80.51 Family history of malignant neoplasm of kidney; Z80.42 Family history of malignant neoplasm of prostate; Z82.49 Family history of ischemic heart disease and other diseases of the circulatory system
CPT/HCPCS: 36415; 80048; 80061; 82140; 82962; 83036; 84439; 84443; 93005; 94640; Q0162

== ENCOUNTER 2020-05-18 17:45 | Emergency (ER) | payer MEDICARE, MEDICAID ==
[~2020-05-18] VITALS: Ht 170.2 cm; Wt 110.0 kg
[~2020-05-18 17:45] MED LIST changes: +GLIM4TAB8 PO; +JANUVIA HOMEMEDPO; +LORA2TAB99 PO; +NICO-487 TD; +OXYC-307 PO; +SPIR100T4 PO
[2020-05-18 17:50] VITALS: BP 116/80
--- NOTE | 2020-05-18 17:54 | NUR ---
Bib by robel for left rib pain. (MGLF 2 DAYS AGO) seen at [facility] for same this am-dischaged home with lidoderm patches. "I usually take 20mg oxycodones so this extra pain is too much." no sob OR wob. pox 98%
[2020-05-18] MEDS ORDERED: OXYcodone/APAP 10/325MG TABLET PO ONE (18:30)
[2020-05-18] MEDS ORDERED: OXYcodone/APAP 10/325MG TABLET ONE (18:37)
--- NOTE | 2020-05-18 18:56 | NUR ---
REPORT TO LIUDMILA STONER.
== END 2020-05-18 19:46 | disposition home or self-care (01) ==
LOC: ED 18:33
DX: S20.212A Contusion of left front wall of thorax, initial encounter (principal); E11.9 Type 2 diabetes mellitus without complications; J44.9 Chronic obstructive pulmonary disease, unspecified; G89.29 Other chronic pain; I10 Essential (primary) hypertension; F17.200 Nicotine dependence, unspecified, uncomplicated; Z90.49 Acquired absence of other specified parts of digestive tract; Z90.710 Acquired absence of both cervix and uterus; W01.0XXA Fall on same level from slipping, tripping and stumbling without subsequent striking against object, initial encounter; Y93.89 Activity, other specified; Y92.89 Other specified places as the place of occurrence of the external cause; Y99.8 Other external cause status
CPT/HCPCS: 99283

== ENCOUNTER 2020-06-01 10:15 | Emergency (ER) | payer MEDICARE, MEDICAID ==
[~2020-06-01] VITALS: Ht 167.6 cm; Wt 110.9 kg
[~2020-06-01 10:15] MED LIST changes: -NICO-487 TD; +NICO-587 TD
[2020-06-01] MEDS ORDERED: ONDANSETRON 2MG/ML, 2ML ONE (10:51)
[2020-06-01] MEDS ORDERED: HYDROmorphone 1 MG/ML, 1ML INJ ONE ×2 (10:51→12:46)
[2020-06-01] MEDS ORDERED: HYDROmorphone 2 MG/ML, 1ML IVPush ONE ×2 (11:00→13:00)
[2020-06-01] MEDS ORDERED: ONDANSETRON 2MG/ML, 2ML IVPush ONE (11:00)
--- NOTE | 2020-06-01 11:20 | NUR ---
PT TO XRAY
[2020-06-01 12:06] VITALS: BP 157/95
== END 2020-06-01 13:10 | disposition home or self-care (01) ==
LOC: ED 10:21
DX: S22.070A Wedge compression fracture of T9-T10 vertebra, initial encounter for closed fracture (principal); S22.080A Wedge compression fracture of T11-T12 vertebra, initial encounter for closed fracture; I10 Essential (primary) hypertension; E11.9 Type 2 diabetes mellitus without complications; J44.9 Chronic obstructive pulmonary disease, unspecified; X58.XXXA Exposure to other specified factors, initial encounter; Y93.89 Activity, other specified; Y92.89 Other specified places as the place of occurrence of the external cause; Y99.8 Other external cause status
CPT/HCPCS: 72072; 96374; 96375; 96376; 99284; J1170; J2405

== ENCOUNTER 2020-07-04 19:32 | Emergency (ER) | payer MEDICARE, MEDICAID ==
[~2020-07-04] VITALS: Ht 167.6 cm; Wt 110.9 kg
[2020-07-04] MEDS ORDERED: LIDOCAINE 1%, 10ML INFIL ONE (20:30)
[2020-07-04] MEDS ORDERED: KETOROLAC 30 MG/1 ML IM ONE (20:30)
--- NOTE | 2020-07-04 20:30 | NUR ---
ASSISTED PT TO BR VIA WC.
[2020-07-04 20:45] VITALS: BP 163/97
--- NOTE | 2020-07-04 20:45 | NUR ---
PT REQUESTING PAIN MEDICATION. STATES SHE CAN'T TAKE ANTI-INFLAMMATORIES AND SHE GETS A RASH FROM TYLENOL (STATES SHE TOOK SOME AT HOME). REPORTS HER DAUGHTER STOLE THE OXYCODONE SHE HAD AT HOME AND WENT TO LONG TERM BECAUSE OF IT. ER ANA LILIA NOTIFIED.
[2020-07-04] MEDS ORDERED: OXYcodone IR 5MG TABLET ONE (21:08)
--- NOTE | 2020-07-04 21:10 | NUR ---
PT MEDICATED WITH OXYCODONE IR. STATES SHE WANTS TO GO HOME. STATES, "YOU'RE NOT DOING ANYTHING FOR ME ANYWAY!"
--- NOTE | 2020-07-04 21:27 | NUR ---
PT AMBULATED TO BR INDEPENDENTLY.
[2020-07-04] MEDS ORDERED: OXYcodone IR 5MG TABLET PO ONE (21:30)
--- NOTE | 2020-07-04 21:37 | NUR ---
D/C INSTRUCTIONS & F/U APPT RV'WD WITH PT, SHE VERBALIZES UNDERSTANDING. CAB VOUCHER PROVIDED TO PT. ASSISTED PT OUT OF ED VIA WC.
== END 2020-07-04 21:37 | disposition home or self-care (01) ==
LOC: ED 20:07
DX: S29.012A Strain of muscle and tendon of back wall of thorax, initial encounter (principal); M54.5 Low back pain; J44.9 Chronic obstructive pulmonary disease, unspecified; E11.65 Type 2 diabetes mellitus with hyperglycemia; E78.5 Hyperlipidemia, unspecified; I10 Essential (primary) hypertension; G43.909 Migraine, unspecified, not intractable, without status migrainosus; Z90.49 Acquired absence of other specified parts of digestive tract; Z90.710 Acquired absence of both cervix and uterus; W18.39XA Other fall on same level, initial encounter; Y93.89 Activity, other specified; Y92.89 Other specified places as the place of occurrence of the external cause; Y99.8 Other external cause status
CPT/HCPCS: 72072; 72110; 99284

== ENCOUNTER 2020-07-06 11:27 | Emergency (ER) | payer MEDICARE, MEDICAID ==
[~2020-07-06] VITALS: Ht 167.6 cm; Wt 108.0 kg
--- NOTE | 2020-07-06 11:42 | NUR ---
PATIENT IS A 60F BIB EMS COMPLAINING OF BACK PAIN WHICH IS CHRONIC. SHE TAKES 20MG OF OXYCODONE Q4 HOURS AT HOME. HER GRANDAUGHTER STOLE HER MEDICATION AND HER CAR ABOUT A WEEK AGO. WAS SEEN HERE 2 DAYS AGO BUT SYMPTOMS HAVE NOT IMPROVED. BECAUSE SHE IS IN CONSTANT PAIN SHE STATES SHE WANTS TO KILL HERSELF BY TAKING ALL OF HER MEDICATIONS AT ONCE. SHE IS ALSO COMPLAINING OF DIARRHEA X 4 DAYS. PROVIDER AT BEDSIDE. ALL BELONGINGS COLLECTED, PATIENT IN GOWN, AND GARGE DOORS LOWERED FOR SAFETY. CONTINUOUS SPO2, AND CYCLING VITALS. CALL LIGHT IN PLACE.
[2020-07-06] MEDS ORDERED: HYDROmorphone 1 MG/ML, 1ML INJ IV ONE (12:00)
[2020-07-06] MEDS ORDERED: SODIUM CHLORIDE 0.9% 100 ML IV SCH (12:00)
[2020-07-06] MEDS ORDERED: ONDANSETRON 2MG/ML, 2ML IVPush ONE (12:00)
[2020-07-06] MEDS ORDERED: SODIUM CHLORIDE 0.9% 1,000ML IVBOLUS ONE (12:00)
[2020-07-06] MEDS ORDERED: HYDROmorphone 1 MG/ML, 1ML INJ ONE (12:08)
--- NOTE | 2020-07-06 12:21 | NUR ---
PATIENT IS NOT CURRENTLY ON A HOLD. IV START AND MEDICATED PER EMAR. PT IS WATCHING TV AND RESTING COMFORTABLY. CALL LIGHT WITHIN REACH.
[2020-07-06 12:22] LABS: BASOPHILS % (AUTO) 1 % (0-1); EOSINOPHILS % (AUTO) 1 % (1-7); LYMPHOCYTES % (AUTO) 28 % (22-44); MD NO; MEAN CORPUSCULAR HGB CONC 34.1 g/dL (32.4-35.8); MEAN PLATELET VOLUME 7.1 fL (7.4-10.4); MONOCYTES % (AUTO) 7 % (2-9); NEUTROPHILS % (AUTO) 63 % (42-75); PLATELET COUNT 320 x10^3/uL (130-400); RED CELL DISTRIBUTION WIDTH 12.9 % (9.6-15.2)
[2020-07-06 12:31] LABS: ALBUMIN 4.3 g/dL (3.4-5.0); ANION GAP 11 mmol/L (5-15); CALCIUM 9.1 mg/dL (8.5-10.1); CHLORIDE 105 mmol/L (98-107); SALICYLATE LEVEL 4.7 mg/dL (2.8-20.0)
[2020-07-06 12:35] LABS: ALANINE AMINOTRANSFERASE 23 U/L (12-78); ALKALINE PHOSPHATASE 68 U/L (45-117); BILIRUBIN,TOTAL 0.4 mg/dL (0.2-1.0); CREATININE 0.76 mg/dL (0.55-1.02); TOTAL PROTEIN 7.6 g/dL (6.4-8.2)
--- NOTE | 2020-07-06 13:00 | NUR ---
PATIENT IS TEARY COMPLAINING OF PAIN EVEN AFTER MEDICATIONS. WILL NOTIFY PROVIDER
--- NOTE | 2020-07-06 13:05 | NUR ---
DISCUSSED PLAN OF CARE WITH DR. NATHAN, HE STATED AWAITING LABS AND WILL DISCUSS FURTHER AFTER RESULTS.
--- NOTE | 2020-07-06 13:24 | NUR ---
REPORT TO JOSUE STONER.
--- NOTE | 2020-07-06 13:27 | NUR ---
BREAK RN: VLAD CHERRY AT BEDSIDE FOR EVALUATION.
[2020-07-06] MEDS ORDERED: OXYcodone IR 5MG TABLET PO ONE (13:30)
[2020-07-06 13:43] LABS: MICROSCOPIC NOT IND
--- NOTE | 2020-07-06 13:52 | NUR ---
BREAK RN: PATIENT AMBULATED TO BATHROOM WITH STEADY GAIT.
[2020-07-06] MEDS ORDERED: OXYcodone IR 5MG TABLET ONE (13:56)
--- NOTE | 2020-07-06 13:58 | NUR ---
BREAK RN: PATIENT MEDICATED PER ALICIA Ha, PATIENT SITTING IN GURNEY WATCHING TV, VSS, CALL LIGHT WITHIN REACH, NO FURTHER NEEDS AT THIS TIME.
[2020-07-06] MEDS ORDERED: BUPROPION 75 MG TABLET PO SCH (14:00)
--- NOTE | 2020-07-06 14:19 | NUR ---
SPOKE WITH DR. NATHAN, PT HAD MULTIPLE OXYCODONE FILLED 06-26-2020, PT HAD NO FILLED OUT A POLICE REPORT, THEREFORE UNABLE TO PRESCRIBE ADDITIONAL NARCOTICS.
[2020-07-06 14:52] VITALS: BP 122/85
--- NOTE | 2020-07-06 14:54 | NUR ---
Patient given discharge instructions and they have confirmed that they understand the instructions. Patient ambulatory with steady gait. Patient did not want to wait for one dose of Wellbutrin and stated she would just get her prescription filled when home. Provided cab voucher and information regarding filing the police report for stolen medications.
== END 2020-07-06 14:56 | disposition home or self-care (01) ==
LOC: ED 14:42
DX: F19.139 Other psychoactive substance abuse with withdrawal, unspecified (principal); F32.9 Major depressive disorder, single episode, unspecified; G89.29 Other chronic pain; M45.6 Ankylosing spondylitis lumbar region; M54.5 Low back pain; R19.7 Diarrhea, unspecified; I10 Essential (primary) hypertension; E11.9 Type 2 diabetes mellitus without complications; J44.9 Chronic obstructive pulmonary disease, unspecified; E78.5 Hyperlipidemia, unspecified; F17.200 Nicotine dependence, unspecified, uncomplicated; Z88.0 Allergy status to penicillin; Z88.9 Allergy status to unspecified drugs, medicaments and biological substances; Z90.49 Acquired absence of other specified parts of digestive tract; Z90.710 Acquired absence of both cervix and uterus
CPT/HCPCS: 36415; 80053; 80299; 80320; 80329; 81003; 83690; 85025; 96361; 96374; 99283; J1170; J7030; G0480

== ENCOUNTER 2020-07-28 18:22 | Emergency (ER) | payer MEDICARE, MEDICAID ==
[~2020-07-28] VITALS: Ht 167.6 cm; Wt 102.7 kg
[~2020-07-28 18:22] MED LIST changes: +ALPR-585 PO; -ALPR1TAB6 PO; -CYCL-259 PO; +CYCL10TA2 PO; -OXYC-307 PO; +OXYC-380 PO; -OXYC5TAB3 PO; +OXYC5TAB98 PO; +SERT-331 PO; -SERT25TA3 PO
[2020-07-28 18:59] LABS: BASOPHILS % (AUTO) 1 % (0-1); EOSINOPHILS % (AUTO) 1 % (1-7); LYMPHOCYTES % (AUTO) 36 % (22-44); MEAN CORPUSCULAR HEMOGLOBIN 30.6 pg (27.0-34.8); MEAN CORPUSCULAR HGB CONC 34.3 g/dL (32.4-35.8); MEAN PLATELET VOLUME 7.4 fL (7.4-10.4); MONOCYTES % (AUTO) 6 % (2-9); NEUTROPHILS % (AUTO) 56 % (42-75); PLATELET COUNT 289 x10^3/uL (130-400); RED BLOOD COUNT 5.07 x10^6/uL (3.82-5.3); RED CELL DISTRIBUTION WIDTH 12.7 % (9.6-15.2)
[2020-07-28 19:00] LABS: MD NO
--- NOTE | 2020-07-28 19:00 | NUR ---
patient ambulated to bathroom with steady gait. requesting pain medications for her back as she "fractured her back before thanksgiving" per her report. in NAD. will continue to monitor.
[2020-07-28 19:13] LABS: ANION GAP 8 mmol/L (5-15); CALCIUM 8.9 mg/dL (8.5-10.1); CHLORIDE 107 mmol/L (98-107); SALICYLATE LEVEL 3.8 mg/dL (2.8-20.0)
[2020-07-28 19:16] LABS: ALANINE AMINOTRANSFERASE 17 U/L (12-78); ALKALINE PHOSPHATASE 62 U/L (45-117); BILIRUBIN,TOTAL 0.7 mg/dL (0.2-1.0); TOTAL PROTEIN 7.5 g/dL (6.4-8.2)
[2020-07-28 19:25] LABS: AMPHETAMINE SCREEN, URINE Negative (Negative); BARBITURATE SCREEN, URINE Negative (Negative); BENZODIAZEPINE SCREEN, URINE Negative (Negative); CANNABINOID SCREEN, URINE Negative (Negative); COCAINE SCREEN, URINE Negative (Negative); METHADONE SCREEN, URINE Negative (Negative); OPIATE SCREEN, URINE Negative (Negative)
[2020-07-28] MEDS ORDERED: OXYcodone/APAP 5/325MG TABLET PO ONE (19:30)
[2020-07-28] MEDS ORDERED: OXYcodone/APAP 5/325MG TABLET ONE (19:37)
--- NOTE | 2020-07-28 19:43 | NUR ---
THROUGHPUT RN: PSYCHIATRIC CONSULT REQ AT THIS TIME. MONITOR IN ROOM READY FOR USE.
[2020-07-28] MEDS ORDERED: TRAZ-96 PO (19:44)
[2020-07-28] MEDS ORDERED: OXYcodone 5 MG/5 ML ORAL.SOL UDC ONE (19:52)
[2020-07-28] MEDS ORDERED: OXYcodone IR 5MG TABLET PO PRN (20:00)
[2020-07-28] MEDS ORDERED: OXYcodone IR 5MG TABLET ONE (20:05)
--- NOTE | 2020-07-28 20:17 | NUR ---
patient given machelle 10mg. patient agitated that she was not receiving 20mg per her reported home dose. i explained to her that I did notify the provider that she took 20mg at home and had not reportedly taken it since this morning and the 10mg is what was ordered and that we could re-evaluate her pain in 30 minutes to an hour and go from there. patient stated "can i just go home then? i can take my own meds! why do the [place]'s (it think she meant PA's) give me less than what i take by the doctors give me dilauntin (i think she meant dilaudid) injection?" Rn reassured patient that i would reassess her pain and re notify the provider of her pain. tele psych cart in room. patient frequently using call arechiga for needs. 1:1 sitter in view of patient. patient is FLACC 0. will continue to monitor.
--- NOTE | 2020-07-28 20:45 | NUR ---
RN notified PA that patient is continuously using call arechiga and stating her pain meds she was given is not working and she either wants more or she is leaving. Millie Kumari PA in to see patient at bedside. new telepsych cart placed in room.
--- NOTE | 2020-07-28 21:03 | NUR ---
patient repeatedly using call raechiga every 1-2 minutes "im not going to lay here in pain. i want to go home". RN re-assessed pain and continues to stay 10/10 back pain. patient reports having SI for "a few days now". PA notified of patient's repeated reports of leaving. 1:1 sitter in view of patient
--- NOTE | 2020-07-28 21:20 | NUR ---
patient started walking out of room and RN asked patient where she needed to go and patient states "im leaving. you cant keep me here." RN calmly spoke with patient about risk of going home and patient was a high risk patient as she is still having thoughts of suicide with plan. she cooperated and walked back to room with standby assist. call arechiga in reach
[2020-07-28] MEDS ORDERED: ZIPRASIDONE 20 MG INJ IM PRN (22:00)
[2020-07-28] MEDS ORDERED: ZIPRASIDONE 20 MG INJ IM ONE (22:03)
--- NOTE | 2020-07-28 22:15 | NUR ---
patient educated by PA on Geodon IM injection and at bedside during injection. patient agreed to this medication to perpetuate pain medication already given. sandwich provided to patient by melai per MD order. call arechiga in reach. safety maintained. 1:1 sitter in view of patient
--- NOTE | 2020-07-28 22:52 | NUR ---
patient asking "when do i get my night meds so i can sleep?" FLACC remains a 0; patient reports 10/10 pain in her back. 1:1 sitter remains in view of patient. call arechiga in reach. safety maintained. will continue to monitor.
--- NOTE | 2020-07-28 23:00 | NUR ---
PA notified of patient requesting night medication, trazodone, but patient just received geodon IM. patient drowsy. clear speech. RN updated on next step in plan to find behavioral health facility. patent resting in bed. call arechiga in reach. safety maintained.
--- NOTE | 2020-07-28 23:22 | NUR ---
telepsych called to get report on patient. i notified tele psych doctor that we cancelled this order and made patient a legal hold.
--- NOTE | 2020-07-28 23:59 | NUR ---
U ACCEPTING PATIENT AT THIS TIME.
--- NOTE | 2020-07-29 00:03 | NUR ---
patient resting in bed. Farzaneh STONER from [facility] down to assess/consult with patient. Farzaneh STONER did discuss plan for this patient with me. will continue to monitor. safety maintained. 1:1 sitter in view of patient
--- NOTE | 2020-07-29 00:12 | NUR ---
patient ambulated up to bathroom. steady gait
--- NOTE | 2020-07-29 01:15 | NUR ---
COVID SWAB PERFORMED. PAPR, GLOVES AND GOWN WORN FOR THIS
--- NOTE | 2020-07-29 02:32 | NUR ---
REPORT GIVEN TO ZHENG STONER IN [facility].
--- NOTE | 2020-07-29 02:58 | NUR ---
PATIENT TRANSFERRED TO U VIA WITH 2 RN'S AND ALL PATIENT'S PERSONAL BELONGINGS. PATIENT REQUESTING PAIN MEDICATION PRIOR TO TRANSFER. UNABLE TO FIND PROVIDER AT THIS TIME AND U WAITING FOR PATIENT. STEADY GAIT TO . FLACC 0. COOPERATIVE.
[2020-07-29 02:59] VITALS: BP 107/67
[2020-07-29] MEDS ORDERED: LORA-446 PO (16:19)
[2020-07-29] MEDS ORDERED: OXYC10TA6 PO (16:19)
== END 2020-07-29 03:02 ==
LOC: ED 21:57
DX: G89.29 Other chronic pain (principal); Z20.822 Contact with and (suspected) exposure to COVID-19; M54.5 Low back pain; R45.851 Suicidal ideations; F32.9 Major depressive disorder, single episode, unspecified; E11.65 Type 2 diabetes mellitus with hyperglycemia; I10 Essential (primary) hypertension; E78.5 Hyperlipidemia, unspecified; J44.9 Chronic obstructive pulmonary disease, unspecified; F17.210 Nicotine dependence, cigarettes, uncomplicated; Z90.49 Acquired absence of other specified parts of digestive tract; Z90.710 Acquired absence of both cervix and uterus
CPT/HCPCS: 36415; 80053; 80299; 80307; 80320; 80329; 85025; 87635; 96372; 99285; 99406; J3486; G0480

== ENCOUNTER 2020-07-29 01:24 | Inpatient (IN) | payer MEDICARE, MEDICAID ==
[~2020-07-29] VITALS: Ht 167.6 cm; Wt 101.0 kg
[~2020-07-29 01:24] MED LIST changes: +TRAZ-96 PO
[2020-07-29] MEDS ORDERED: POLYETHYLENE GLYCOL 17 GM PACKET PO PRN (02:00)
[2020-07-29] MEDS ORDERED: ONDANSETRON ODT 4 MG PO PRN (02:00)
[2020-07-29] MEDS ORDERED: BISACODYL 10 MG SUPP PR PRN (02:00)
[2020-07-29] MEDS ORDERED: ALBUTEROL HFA 90 MCG/SPRAY INH PRN (03:30)
[2020-07-29 03:39] VITALS: BP 113/78
[2020-07-29] MEDS ORDERED: PLEASE ENTER HEIGHT AND WEIGHT MC SCH (04:00)
[2020-07-29] MEDS: OXYcodone IR 5MG TABLET PO PRN ×5 (04:52→18:34)
[2020-07-29 06:37] LABS: MICROSCOPIC NOT IND
[2020-07-29] MEDS: LORazepam 1MG TABLET PO PRN ×3 (06:55→20:16)
[2020-07-29 07:36] VITALS: BP 116/72
[2020-07-29 07:39] LABS: CHOL/HDL RATIO 2.1; LDL/HDL RATIO 0.5 (0.5-3.0)
[2020-07-29] MEDS: LINAGLIPTIN 5 MG TAB PO SCH ×2 (08:55→09:00)
[2020-07-29] MEDS: GABAPENTIN 100 MG CAPSULE PO SCH ×3 (08:56→20:16)
[2020-07-29] MEDS: NICOTINE 21 MG/24 HR PATCH.TD24 TD SCH (08:58)
[2020-07-29] MEDS: LISINOPRIL 20 MG TABLET PO SCH ×2 (08:58→09:00)
[2020-07-29] MEDS: GLIMEPIRIDE 4 MG TABLET PO SCH ×2 (09:00→20:15)
[2020-07-29] MEDS: SPIRONOLACTONE 25 MG TABLET PO SCH (09:00)
[2020-07-29] MEDS ORDERED: DULOXETINE 30 MG CAPSULE.DR PO SCH ×2 (09:00→12:00)
[2020-07-29] MEDS ORDERED: OXYC10TA6 PO (16:19)
[2020-07-29] MEDS ORDERED: LORA-446 PO (16:19)
[2020-07-29] MEDS: FLUOXETINE HCL 20 MG CAPSULE PO SCH (18:00)
[2020-07-29 19:43] VITALS: BP 124/83
[2020-07-29] MEDS: SIMVASTATIN 40 MG TABLET PO SCH (20:16)
[2020-07-29] MEDS: INSULIN LISPRO 100 UNITS/ML, PEN SQ-INSULIN SCH (20:35)
[2020-07-29] MEDS ORDERED: TRAZODONE 150MG TABLET PO SCH (21:00)
[2020-07-30] MEDS: OXYcodone IR 5MG TABLET PO PRN ×4 (03:03→21:30)
[2020-07-30] MEDS: LORazepam 1MG TABLET PO PRN ×4 (05:21→22:47)
[2020-07-30 06:24] LABS: BASOPHILS % (AUTO) 1 % (0-1); EOSINOPHILS % (AUTO) 3 % (1-7); LYMPHOCYTES % (AUTO) 35 % (22-44); MEAN CORPUSCULAR HGB CONC 33.9 g/dL (32.4-35.8); MEAN PLATELET VOLUME 7.3 fL (7.4-10.4); MONOCYTES % (AUTO) 7 % (2-9); NEUTROPHILS % (AUTO) 54 % (42-75); PLATELET COUNT 257 x10^3/uL (130-400); RED BLOOD COUNT 5.14 x10^6/uL (3.82-5.3); RED CELL DISTRIBUTION WIDTH 12.9 % (9.6-15.2)
[2020-07-30 06:26] LABS: MD NO
[2020-07-30 07:34] VITALS: BP 141/96
[2020-07-30] MEDS: INSULIN LISPRO 100 UNITS/ML, PEN SQ-INSULIN SCH ×4 (08:08→20:06)
[2020-07-30] MEDS: BUPROPION SR 150 MG TABLET PO SCH (09:00)
[2020-07-30] MEDS: GLIMEPIRIDE 4 MG TABLET PO SCH ×2 (09:32→22:36)
[2020-07-30] MEDS: NICOTINE 21 MG/24 HR PATCH.TD24 TD SCH (09:32)
[2020-07-30] MEDS: FLUOXETINE HCL 20 MG CAPSULE PO SCH (09:34)
[2020-07-30] MEDS: LINAGLIPTIN 5 MG TAB PO SCH (09:34)
[2020-07-30] MEDS: LISINOPRIL 20 MG TABLET PO SCH (09:34)
[2020-07-30] MEDS: GABAPENTIN 100 MG CAPSULE PO SCH ×3 (09:34→22:36)
[2020-07-30] MEDS: SPIRONOLACTONE 25 MG TABLET PO SCH (09:34)
[2020-07-30 19:46] VITALS: BP 123/85
[2020-07-30] MEDS: BACLOFEN 10 MG TABLET PO SCH (22:36)
[2020-07-30] MEDS: DOXEPIN 25 MG CAPSULE PO SCH (22:36)
[2020-07-30] MEDS: SIMVASTATIN 40 MG TABLET PO SCH (22:36)
[2020-07-31] MEDS: NICOTINE 21 MG/24 HR PATCH.TD24 TD SCH (07:53)
[2020-07-31] MEDS: GABAPENTIN 100 MG CAPSULE PO SCH ×3 (07:53→21:46)
[2020-07-31] MEDS: BUPROPION SR 150 MG TABLET PO SCH ×2 (07:53→08:04)
[2020-07-31] MEDS: GLIMEPIRIDE 4 MG TABLET PO SCH ×2 (07:53→21:46)
[2020-07-31] MEDS: LINAGLIPTIN 5 MG TAB PO SCH (07:54)
[2020-07-31] MEDS: FLUOXETINE HCL 20 MG CAPSULE PO SCH (07:54)
[2020-07-31] MEDS: BACLOFEN 10 MG TABLET PO SCH (07:54)
[2020-07-31] MEDS: SPIRONOLACTONE 25 MG TABLET PO SCH (07:54)
[2020-07-31] MEDS: LISINOPRIL 20 MG TABLET PO SCH (07:54)
[2020-07-31] MEDS: OXYcodone IR 5MG TABLET PO PRN ×3 (07:56→22:16)
[2020-07-31] MEDS: INSULIN LISPRO 100 UNITS/ML, PEN SQ-INSULIN SCH ×4 (08:02→20:16)
[2020-07-31] MEDS: BACLOFEN 10 MG TABLET PO PRN ×2 (09:32→21:46)
[2020-07-31] MEDS: LORazepam 1MG TABLET PO PRN ×2 (09:32→18:20)
[2020-07-31] MEDS ORDERED: DOXE25CA PO (14:18)
[2020-07-31] MEDS ORDERED: FLUO20CA23 PO (14:18)
[2020-07-31] MEDS ORDERED: NICO-587 TD (14:18)
[2020-07-31 19:36] VITALS: BP 112/74
[2020-07-31] MEDS: SIMVASTATIN 40 MG TABLET PO SCH (21:46)
[2020-07-31] MEDS: DOXEPIN 25 MG CAPSULE PO SCH (21:46)
[2020-08-01] MEDS: LORazepam 1MG TABLET PO PRN ×2 (00:20→07:55)
[2020-08-01] MEDS: OXYcodone IR 5MG TABLET PO PRN (06:40)
[2020-08-01 07:27] VITALS: BP 124/84
[2020-08-01] MEDS: INSULIN LISPRO 100 UNITS/ML, PEN SQ-INSULIN SCH ×2 (07:57→12:07)
[2020-08-01] MEDS: LINAGLIPTIN 5 MG TAB PO SCH (08:28)
[2020-08-01] MEDS: BUPROPION SR 150 MG TABLET PO SCH ×2 (08:28→08:34)
[2020-08-01] MEDS: SPIRONOLACTONE 25 MG TABLET PO SCH (08:28)
[2020-08-01] MEDS: GABAPENTIN 100 MG CAPSULE PO SCH (08:28)
[2020-08-01] MEDS: NICOTINE 21 MG/24 HR PATCH.TD24 TD SCH (08:28)
[2020-08-01] MEDS: FLUOXETINE HCL 20 MG CAPSULE PO SCH (08:28)
[2020-08-01] MEDS: GLIMEPIRIDE 4 MG TABLET PO SCH (08:28)
[2020-08-01] MEDS: LISINOPRIL 20 MG TABLET PO SCH (08:29)
[2020-08-01] MEDS: BACLOFEN 10 MG TABLET PO PRN (10:08)
== END 2020-08-01 14:20 | disposition home or self-care (01) | DRG 885 ==
LOC: 3E 01:52 → UNDOADMIN 02:58 → 3E 07-30 17:40 → UNDOADMIN 07-30 18:17 → 3E 07-30 18:17
PROVIDERS: ADMIT Psychiatry & Neurology Psychosomatic Medicine; ATTEND Psychiatry & Neurology Psychosomatic Medicine
DX: F33.2 Major depressive disorder, recurrent severe without psychotic features (principal); F11.20 Opioid dependence, uncomplicated; F41.1 Generalized anxiety disorder; F60.3 Borderline personality disorder; G89.29 Other chronic pain; E11.9 Type 2 diabetes mellitus without complications; J44.9 Chronic obstructive pulmonary disease, unspecified; E78.5 Hyperlipidemia, unspecified; I10 Essential (primary) hypertension; Z88.0 Allergy status to penicillin; Z88.2 Allergy status to sulfonamides; Z90.710 Acquired absence of both cervix and uterus
CPT/HCPCS: 36415; 71045; 80061; 81003; 82607; 82962; 83036; 84439; 84443; 85025; 93005; J1815

== ENCOUNTER 2021-02-07 20:57 | Emergency (ER) | payer MEDICARE, MEDICAID ==
[~2021-02-07] VITALS: Ht 167.6 cm; Wt 105.0 kg
[~2021-02-07 20:57] MED LIST changes: +DOXE25CA PO; +FLUO20CA23 PO; +LORA-446 PO; +OXYC10TA6 PO
--- NOTE | 2021-02-07 21:26 | NUR ---
Task RN: Patient presents to ER c/o back pain for multiple days. Patient has a hx of same. She had an epidural on January 29 and has had increasing pain since then. At home patient took unknown muscle relaxers which have not helped. MAIL COURIER, EMS admin 200mcg Fentanyl which helped slightly. Patient is in obvious discomfort. Respirations even and unlabored.
[2021-02-07] MEDS ORDERED: HYDROmorphone 2 MG/ML, 1ML ONE ×2 (21:47→22:41)
[2021-02-07] MEDS ORDERED: HYDROmorphone 2 MG/ML, 1ML IV ONE (22:00)
[2021-02-07] MEDS ORDERED: HYDROmorphone 1 MG/ML, 1ML INJ IV ONE (22:00)
--- NOTE | 2021-02-07 23:02 | NUR ---
Patient given discharge instructions and they have confirmed that they understand the instructions. Patient ambulatory with steady gait.
== END 2021-02-07 23:05 | disposition home or self-care (01) ==
LOC: ED 21:36
DX: M54.5 Low back pain (principal); G89.29 Other chronic pain; I10 Essential (primary) hypertension; E11.9 Type 2 diabetes mellitus without complications; J44.9 Chronic obstructive pulmonary disease, unspecified
CPT/HCPCS: 96374; 96376; 99284; J1170

== ENCOUNTER 2021-03-21 15:53 | Emergency (ER) | payer MEDICARE, MEDICAID ==
[~2021-03-21] VITALS: Ht 167.6 cm; Wt 107.0 kg
[2021-03-21 18:25] VITALS: BP 124/61
== END 2021-03-21 19:08 | disposition home or self-care (01) ==
LOC: ED 15:58
DX: S70.01XA Contusion of right hip, initial encounter (principal); G89.29 Other chronic pain; M54.5 Low back pain; I10 Essential (primary) hypertension; J44.9 Chronic obstructive pulmonary disease, unspecified; E78.5 Hyperlipidemia, unspecified; E11.9 Type 2 diabetes mellitus without complications; E66.9 Obesity, unspecified; Z90.49 Acquired absence of other specified parts of digestive tract; Z88.0 Allergy status to penicillin; X58.XXXA Exposure to other specified factors, initial encounter; Y93.89 Activity, other specified; Y92.89 Other specified places as the place of occurrence of the external cause; Y99.8 Other external cause status